=== PATIENT | female | born 1940 | race Caucasian/White ===

== ENCOUNTER → 2017-08-27 | Outpatient (CLI) | payer MEDICARE, OTHER ==
--- NOTE | 2017-08-29 12:38 | MRI ---
EXAM DESCRIPTION: Brain w/wo Contrast CLINICAL HISTORY: 76 years, Female, Sixth [abducent] nerve palsy, unspecified eye COMPARISON: None available. TECHNIQUE: Multiplanar multi sequence images of the brain were obtained with and without gadolinium contrast. FINDINGS: No diffusion restriction. Midline structures, including the corpus callosum, pituitary and brainstem, are unremarkable. The ventricles are of normal size and configuration without intraventricular lesion. The internal auditory canals and cerebral pontine angles are unremarkable. No extra-axial fluid collections. Physiologic vascular flow voids are noted. There is no posterior fossa lesion. There are irregular areas of increased T2/FLAIR signal involving periventricular white matter in both cerebral hemispheres, nonspecific but likely related to chronic ischemic microvascular disease. The basal ganglia are unremarkable. No lesion is seen in the brian or elsewhere along the course of either 6th cranial nerve. Specifically, no mass or inflammation is noted in the prepontine cistern or in either cavernous sinus. No intraorbital mass or inflammation. The lateral rectus and other extraocular muscles in both orbits are unremarkable. Postcontrast images show no enhancing lesion along the course of either 6th cranial nerve or in either orbit. Visualized paranasal sinuses are unremarkable. No calvarial lesion. IMPRESSION: No apparent intracranial abnormality to explain provided history of 6th cranial nerve palsy. Chronic ischemic microvascular changes, otherwise unremarkable exam. Electronically signed by: Ed Guerrero MD 08/29/2017 12:37 PM CDT Workstation: [id number]
--- NOTE | 2017-08-29 12:43 | MRI ---
EXAM DESCRIPTION: MRA Head and/or Neck CLINICAL HISTORY: 76 years, Female, Sixth [abducent] nerve palsy, unspecified eye COMPARISON: None TECHNIQUE: MRA of the brain was performed without gadolinium contrast including 3D [id number] and 3D MIP reconstructed images. FINDINGS: There is persistent origin of the left posterior cerebral artery with slight enlargement of the left posterior communicating artery, a common anatomic variant of doubtful clinical significance. The posterior circulation is otherwise unremarkable. The right posterior communicating artery is unremarkable. Petrous, precavernous and cavernous segments of the internal carotid arteries are unremarkable. The anterior and middle cerebral arteries are perfused and otherwise unremarkable. No intracanicular artery aneurysm. IMPRESSION: No intracranial vascular abnormality to explain patient symptoms. Electronically signed by: Ed Guerrero MD 08/29/2017 12:42 PM CDT Workstation: [id number]
== END | disposition home or self-care (01) ==
LOC: MRI 15:06
PROVIDERS: ATTEND Ophthalmology
DX: H49.20 Sixth [abducent] nerve palsy, unspecified eye (principal)

== ENCOUNTER → 2017-12-18 | Outpatient (CLI) | payer MEDICARE, OTHER | LOC: GMAJ 12:08 | PROVIDERS: ATTEND Family Medicine | DX: I10 Essential (primary) hypertension (principal) ==

== ENCOUNTER → 2018-07-09 | Outpatient (CLI) | payer MEDICARE, OTHER ==
--- NOTE | 2018-07-09 11:15 | CT ---
EXAM DESCRIPTION: Abdomen/Pelvis w/Contrast CLINICAL HISTORY: 77 years Female, RLQ ABD PAIN R10.84 COMPARISON: None available. TECHNIQUE: Contiguous 3 mm axial images were obtained from the lung bases to the level of the proximal femora after the administration of intravenous and oral contrast. Sagittal and coronal reconstructions were reviewed. FINDINGS: THORAX: The imaged lower thorax demonstrates no gross abnormality. LIVER: The liver demonstrates normal size and density with no intrahepatic biliary ductal dilatation or focal masses. GALLBLADDER: Surgically absent. PANCREAS: Appears normal with no cystic or solid lesions. SPLEEN: Normal ADRENAL GLANDS: Normal with no nodules or masses. KIDNEYS: Multiple areas of cortical scarring are noted in both kidneys most likely secondary to prior infections or infarctions. No hydronephrosis or nephrolithiasis or perinephric fluid collections bilaterally. No focal masses are identified. The visualized ureters appear grossly unremarkable. STOMACH: The stomach is not well-distended limiting detailed evaluation. SMALL BOWEL: The small bowel loops demonstrate variable degrees of distention with no abnormal dilatation or other signs to suggest bowel obstruction. LARGE BOWEL: The sigmoid colon and rectum is not well-distended. Moderate to large amount of fecal material is noted in the remainder of the colon, representing constipation. There appendix is not definitely visualized. However, no secondary signs to suggest acute appendicitis. No evidence of free intraperitoneal air or fluid. RETROPERITONEUM: The abdominal aorta is nonaneurysmal with mild atherosclerosis. The inferior vena cava is normal in size and caliber. No abnormally enlarged retroperitoneal lymph nodes are identified. URINARY BLADDER:The urinary bladder is well-distended with no gross abnormality. The uterus and ovaries are surgically absent. ADDITIONAL FINDINGS: There is a persistent fat-containing umbilical hernia with the defect measuring approximately 1.5 cm. BONES: Moderate degenerative changes are identified in the visualized bones. Grade 1 anterolisthesis of L4 over L5 is noted. IMPRESSION: 1. Constipation. 2. Persistent fat-containing umbilical hernia with the defect measuring approximately 1.5 cm. This exam was performed according to our departmental dose-optimization program, which includes automated exposure control, adjustment of the mA and/or kV according to patient size and/or use of iterative reconstruction technique. Electronically signed by: Lanny Olivares MD 07/09/2018 11:14 AM CDT
== END ==
LOC: CT 09:00
PROVIDERS: ATTEND Family Medicine
DX: K59.00 Constipation, unspecified (principal); K42.9 Umbilical hernia without obstruction or gangrene; R10.31 Right lower quadrant pain

== ENCOUNTER → 2018-08-13 | Outpatient (CLI) | payer MEDICARE, OTHER ==
--- NOTE | 2018-08-14 08:12 | MRI ---
EXAM DESCRIPTION: Lumbar Spine w/o Contrast : Magnetic Resonance Imaging. CLINICAL HISTORY: RADICULOPATHY COMPARISON: None. TECHNIQUE: Multiplanar, multiple standard sequences, non contrast MRI, lumbar spine. FINDINGS: L5-S1: Minimal disc desiccation. Disc space preserved. Minimal midline posterior bulging. Bilateral facet arthrosis left more than right. Mild left foraminal narrowing and moderate right foraminal narrowing. Moderate canal narrowing. Trace anterolisthesis. L4-5: Minimal disc desiccation with disc space preserved. Grade 1 anterolisthesis. Bilateral facet arthrosis and flavum ligament hypertrophy. Borderline mild canal stenosis. Bilateral moderate foraminal narrowing. L3-4: Disc normal signal and space preserved. Arthrosis of the left facet and flavum ligament hypertrophy. Mild canal narrowing. Modic type II endplate reactive changes on the left with disc spur complex encroaching on the foramen. Marked left foraminal narrowing and mild right foraminal narrowing. L2-3: Disc desiccation. Posterior midline bulge. Slightly more to the left of midline. Trace retrolisthesis. Mild canal narrowing. Anterior Modic type I endplate reactive changes left of midline. Arthrosis left facet. Moderate left foraminal narrowing. Mild narrowing on the right. L1-2: Disc desiccation anterior bulging and spurs. Type I Modic endplate changes to the right of midline. Disc spur complex encroaching on the right foramen which is borderline stenotic. Moderate canal and left foraminal narrowing. T12-L1 disc space preserved, normal signal in the disc. Canal and foramina are patent. Conus terminates at this level. L3-L5 dextroscoliosis. T12-L2 levoscoliosis. Paravertebral soft tissues : Mild muscle atrophy. Otherwise normal marrow signal in the remaining vertebral bodies and the posterior elements. Vertebral bodies are not compressed at any level. IMPRESSION: 1. Trace anterolisthesis L5-S1 with moderate canal and right foraminal narrowing, minimal posterior disc bulge. 2. Grade 1 anterolisthesis L4-5 with multifactorial borderline mild canal stenosis. Bilateral moderate foraminal narrowing. 3. Moderate spondylosis L3-4, left of midline with disc spur complex encroaching on the foramen which is markedly narrowed. 4. Posterior midline L2-3 disc bulge to the left of midline with mild canal narrowing. Moderate spondylosis to the left. Moderate left foraminal narrowing. 5. Moderate spondylosis to the right of midline. Disc spur complex encroaching on the right foramen which is borderline stenotic. 6. Dextroscoliosis and levoscoliosis of the lumbar spine. No compression type vertebral body fractures. Electronically signed by: Claude Hooks MD 08/14/2018 8:11 AM CDT
== END ==
LOC: MRI 11:00
PROVIDERS: ATTEND Physical Medicine & Rehabilitation
DX: M51.16 Intervertebral disc disorders with radiculopathy, lumbar region (principal); M43.16 Spondylolisthesis, lumbar region; M41.86 Other forms of scoliosis, lumbar region; M47.896 Other spondylosis, lumbar region

== ENCOUNTER 2018-12-11 16:06 | Observation (INO) | payer MEDICARE, OTHER ==
[2018-12-11] MEDS ORDERED: HYDROcodone 5MG/APAP 325MG 1 EA TAB PO ONE (16:44)
--- NOTE | 2018-12-11 16:49 | ED.PDOC ---
History of Present Illness - General Chief Complaint: General Stated Complaint: s/p fall Time Seen by Provider: 12/11/18 16:30 Source: patient Exam Limitations: no limitations - History of Present Illness Initial Comments: Patient presents after falling in her home. She was carrying grocery bags and tripped. She landed on her left side and struck the left forehead, shoulder, lo wer back and ribs. She is complaining of pain in the left ribs that is aching and constant, better with rest, worse with movement, no previous injuries to that area. The pain in the shoulder is mild, aching, located over the deltoid, no exacerbating nor alleviating factors, no previous injuries to the area. The back pain is aching, lumbar, non-radiating, no exacerbating nor alleviating factors, no previous injuries. Patient denies pain over the left eye but there is an obvious contusion at the supraorbital margin. No other complaints. Timing/Duration: 1-3 hours Severity: mild Improving Factors: rest Worsening Factors: movement Associated Symptoms: other - as in HPI Allergies/Adverse Reactions: Allergies NO KNOWN ALLERGY Allergy (Verified 12/11/18 16:23) Home Medications: Ambulatory Orders Aspirin [Aspirin EC] 81 mg PO DAILY 06/26/14 Atorvastatin Calcium [Lipitor] 40 mg PO BEDTIME 06/26/14 Calcium Carbonate-Vitamin D [Calcium 600+D 600-200 mg-Unit] 1 tab PO BID 06/26/14 Citalopram Hydrobromide [Celexa] 20 mg PO DAILY 06/26/14 Clopidogrel Bisulfate [Plavix] 75 mg PO DAILY 06/26/14 Multiple Vitamins W/ Minerals [Centrum Silver] 1 tab PO DAILY 06/26/14 Polyethylene Glycol 3350 [Miralax] 17 gm PO DAILY 06/26/14 Diltiazem HCl Coated Beads [Cartia Xt] 180 mg PO BEDTIME 12/11/18 Latanoprost 0.005 % OP BEDTIME 12/11/18 Lubiprostone [Amitiza] 48 mcg PO DAILY 12/11/18 Metoprolol Succinate [Toprol Xl] 12.5 mg PO DAILY 12/11/18 Omeprazole Magnesium [Prilosec Otc] 40 mg PO DAILY 12/11/18 Review of Systems - Review of Systems Constitutional: States: no symptoms reported EENTM: States: no symptoms reported Respiratory: States: no symptoms reported Cardiology: States: no symptoms reported Gastrointestinal/Abdominal: States: no symptoms reported Genitourinary: States: no symptoms reported Musculoskeletal: States: see HPI Skin: States: no symptoms reported Neurological: States: no symptoms reported Endocrine: States: no symptoms reported Hematologic/Lymphatic: States: no symptoms reported Past Medical History (General) - Patient Medical History Hx Seizures: No Hx Stroke: No Hx Dementia: No Hx Asthma: No Hx Cardiac Disorders: Yes Hx Congestive Heart Failure: No Hx Pacemaker: No Hx Hypertension: Yes Hx Thyroid Disease: No Hx Diabetes: No Hx Gastroesophageal Reflux: No Hx Renal Disease: No Hx Cancer: Yes - skin cancer on nose Hx of HIV: No Hx MRSA: No Surgical History: cholecystectomy, coronary bypass surgery, Hysterectomy - Vaccination History Hx Influenza Vaccination: Yes Hx Pneumococcal Vaccination: Yes - Social History Hx Tobacco Use: No Family Medical History - Family History Mother Family History: No Known Physical Exam - Physical Exam General Appearance: Alert Eye Exam: bilateral normal Ears, Nose, Throat: normal ENT inspection Neck: non-tender, full range of motion, supple Respiratory: lungs clear, normal breath sounds Cardiovascular/Chest: regular rate, rhythm, other - mildly TTP over left ribs 5- 9, anteriorly Gastrointestinal/Abdominal: normal bowel sounds, non tender, soft Back Exam: normal inspection, no CVA tenderness, no vertebral tenderness Extremity: normal range of motion, non-tender, normal inspection Neurologic: vice president tax II-XII nml as tested, no motor/sensory deficits, alert, normal mood/affect, oriented x 3 Skin Exam: other - contusion above the left eye at the supraorbital margin Lymphatic: no adenopathy Progress - Progress Progress: 12/11/18 18:48 Radiographs of the left shoulder and lumbar vertebrae showed no fracture. CT head showed no hemorrhage and no acute disease. Radiographs of the left ribs showed fractures of 5-8 as well as pleural thickening and atelectasis of the left lung base. Patient was admitted for observation due to the lung findings. Plan was discussed with the patient who voiced understanding and agreement with admission. Departure - Departure Clinical Impression: Ribs, multiple fractures Disposition: Admit Patient Condition: Good Departure Forms: ED Discharge - Pt. Copy, Patient Portal Self Enrollment Diet: resume usual diet Activity: as per physical therapy Referrals: Trip Maher MD [Primary Care Provider] - 1-2 Weeks Home Medications: Ambulatory Orders Aspirin [Aspirin EC] 81 mg PO DAILY 06/26/14 Atorvastatin Calcium [Lipitor] 40 mg PO BEDTIME 06/26/14 Calcium Carbonate-Vitamin D [Calcium 600+D 600-200 mg-Unit] 1 tab PO BID 06/26/14 Citalopram Hydrobromide [Celexa] 20 mg PO DAILY 06/26/14 Clopidogrel Bisulfate [Plavix] 75 mg PO DAILY 06/26/14 Multiple Vitamins W/ Minerals [Centrum Silver] 1 tab PO DAILY 06/26/14 Polyethylene Glycol 3350 [Miralax] 17 gm PO DAILY 06/26/14 Diltiazem HCl Coated Beads [Cartia Xt] 180 mg PO BEDTIME 12/11/18 Latanoprost 0.005 % OP BEDTIME 12/11/18 Lubiprostone [Amitiza] 48 mcg PO DAILY 12/11/18 Metoprolol Succinate [Toprol Xl] 12.5 mg PO DAILY 12/11/18 Omeprazole Magnesium [Prilosec Otc] 40 mg PO DAILY 12/11/18
--- NOTE | 2018-12-11 18:00 | CT ---
PROCEDURE: Head CLINICAL HISTORY: 78 years Female fall onto head, taking Plavix COMPARISON: 05/14/2010. TECHNIQUE: Contiguous axial CT images obtained through the brain without IV contrast. This exam was performed according to our department optimization program which includes automated exposure control, adjustment of the mA and/or kv according to patient size and/or use of iterative reconstruction technique. FINDINGS: The ventricles and sulci are within normal limits for the patient's age. No midline shift or mass effect. No masses identified. No acute intracranial hemorrhage. There is mild periventricular white matter disease. Area of previous infarct in the right kitchen radiata and the adjacent posterior temporoparietal region. No fluid or significant mucosal thickening in the visualized paranasal sinuses. No depressed calvarial fractures. IMPRESSION: Previous right temporoparietal infarct No acute intracranial abnormality is identified. Electronically signed by: Felipa Renteria MD 12/11/2018 5:58 PM LAW TUTOR
--- NOTE | 2018-12-11 18:12 | RAD ---
EXAM DESCRIPTION: Shoulder,Left 2 or More Views CLINICAL HISTORY: 78 years Female pain after fall COMPARISON: None. TECHNIQUE: LEFT SHOULDER two view FINDINGS: No acute fractures or dislocations identified. No osseous destructive lesions. Acromioclavicular joint appears maintained. IMPRESSION: No acute fracture or dislocation identified. Electronically signed by: Felipa Renteria MD 12/11/2018 6:11 PM WEATHER CLERK
--- NOTE | 2018-12-11 18:14 | RAD ---
EXAM DESCRIPTION: Lumbar Spine 3 Views CLINICAL HISTORY: 78 years ,Female pain after fall COMPARISON: None. TECHNIQUE: Three views FINDINGS: Study is significantly limited by bony demineralization and body habitus. There is grade 1 anterolisthesis of L4 on L5. There is mild curvature in the lumbar spine. Postsurgical changes are noted. IMPRESSION: Bony demineralization and body habitus limits evaluation No definite acute fracture is noted. If there is continued concern recommend CT. Electronically signed by: Felipa Renteria MD 12/11/2018 6:13 PM [facility]
--- NOTE | 2018-12-11 18:16 | RAD ---
EXAM DESCRIPTION: Ribs,Left 3 Views CLINICAL HISTORY: 78 years Female pain after fall COMPARISON: 03/24/2015 FINDINGS: Cardiac size appears similar to the previous study with elevation the right hemidiaphragm. Areas of atelectasis or scarring in both lung bases. No definite pneumothorax. Fractures of the anterior and anterolateral fifth through eighth ribs. Some pleural thickening is noted. No definite pneumothorax. IMPRESSION: Fractures of the left fifth through eighth ribs with some pleural thickening and atelectasis in the left base Electronically signed by: Felipa Renteria MD 12/11/2018 6:15 PM [facility]
[2018-12-11] MEDS ORDERED: ZOLPIDEM TARTRATE 5 MG TAB PO PRN (20:24)
[2018-12-11] MEDS ORDERED: LEVALBUTEROL NEBS 1.25 MG/3 ML VIAL NEB PRN (20:25)
[2018-12-11] MEDS ORDERED: ONDANSETRON INJ 4 MG/2 ML VIAL IV PRN (20:25)
[2018-12-11] MEDS ORDERED: SODIUM CHLORIDE 0.9% (FLUSH) 10 ML SYG IV PRN (20:25)
[2018-12-11] MEDS ORDERED: IV SET AND CAP CHANGE INJ INJ SCH (20:30)
[2018-12-11] MEDS ORDERED: LATANOPROST 0.005% OP SCH (21:00)
[2018-12-11] MEDS ORDERED: diltiaZEM HCL CD 180 MG CAP PO SCH (21:00)
[2018-12-11] MEDS ORDERED: NON-FORMULARY MEDICATION 1 EA MIS (Atorvastatin Calcium [Lipitor] 40 MG) PO SCH (21:00)
[2018-12-11] MEDS ORDERED: ATORVASTATIN 20 MG TAB PO ONE (21:32)
[2018-12-11] MEDS: SODIUM CHLORIDE 0.9% (FLUSH) 10 ML SYG IV SCH (21:40)
[2018-12-11] MEDS: HYDROcodone 5MG/APAP 325MG 1 EA TAB PO PRN (21:42)
[2018-12-12] MEDS: HYDROcodone 5MG/APAP 325MG 1 EA TAB PO PRN ×3 (05:12→13:22)
[2018-12-12] MEDS ORDERED: PANTOPRAZOLE SODIUM TAB 40 MG PO SCH (06:30)
--- NOTE | 2018-12-12 07:11 | RAD ---
EXAM DESCRIPTION: Chest,2 Views CLINICAL HISTORY:78 years Female, trauma with fx ribs (on Plavix) Comparison: December 11, 2018 FINDINGS: Bibasilar subsegmental atelectasis or scarring. No focal consolidation. No pleural effusion. No pneumothorax. Previously noted fractures are not well visualized this study. Sternotomy wires and mediastinal clips noted. Soft tissues are unremarkable. IMPRESSION: Bibasilar subsegmental atelectasis or scarring. No focal consolidation. Rib fractures are not well-visualized the study. Electronically signed by: Silverio Rudolph MD 12/12/2018 7:10 AM [facility]
[2018-12-12] MEDS ORDERED: LEVALBUTEROL NEBS 1.25 MG/3 ML VIAL NEB SCH (08:00)
[2018-12-12] MEDS ORDERED: CLOPIDOGREL 75 MG TAB PO SCH (09:00)
[2018-12-12] MEDS ORDERED: LUBIPROSTONE PO SCH (09:00)
[2018-12-12] MEDS ORDERED: METOPROLOL SUCCINATE XL 25 MG TAB PO SCH (09:00)
[2018-12-12] MEDS ORDERED: POLYETHYLENE GLYCOL 3350 17 GM PCKT PO SCH (09:00)
[2018-12-12] MEDS ORDERED: ASPIRIN (ENTERIC COATED) 81 MG TAB PO SCH (09:00)
[2018-12-12] MEDS ORDERED: CITALOPRAM HBR 20 MG TAB PO SCH (09:00)
[2018-12-12 10:39] VITALS: BP 110/65; TEMP 98; O2SAT 95
--- NOTE | 2018-12-12 14:03 | SSS ---
SUPERVISING PHYSICIAN: Brian Aranda M.D. DISCHARGE DIAGNOSES: 1. Traumatic same level fall resulting in 3 left rib fractures with increased risk of bleeding due to the patient taking Plavix. 2. Fracture of ribs #5 through #8 left anterolateral. 3. History of coronary artery disease. 4. Hypertension. 5. Chronic obstructive pulmonary disease without signs or symptoms of exacerbation. 6. Insomnia. 7. Osteoporosis. 8. History of supraventricular tachycardia. 9. History of atrial fibrillation. HISTORY OF PRESENT ILLNESS: This is a 78 year-old female patient who was bringing in her groceries on the evening prior to admission and she slipped in her home and fell on her left side. She said there was no loss of consciousness. She stayed at home over the next 24 hours and after her daughter found out she was brought to the Emergency Room because the patient is on Plavix and she was also in quite a bit of pain. The pain on admission to the E. R. was in her left shoulder. She also had some pain in her mid back. She had a contusion on the side of her face at the supraorbital margin. She had x-rays done. A left shoulder x-ray showed no acute fracture or dislocation. Her left rib x-ray showed fractures of the anterior and anterolateral fifth through eighth ribs with some pleural thickening and with some mild atelectasis in the left base. Head CT was also done and showed no acute intracranial abnormality identified with a previous right temporoparietal infarct. There was also a lumbar spine x-ray that showed no definite acute fracture noted. Lab showed a WBC of 7.8 with hemoglobin 12.7, hematocrit 37.5. PT was 10.4, PTT 25.9. Electrolytes were basically within normal limits. Glucose was slightly high at 109 with serum osmolality of 272.7. Liver enzymes were within normal limits. I was called for hospital admission. The E. R. doctor was concerned that she may have a hemothorax due to the atelectasis on the rib x-ray and also that she is on Plavix chronically. The patient was placed in observation. HOSPITAL COURSE: Her home medications were restarted. Her breathing was monitored as well as she was placed on O2 sat monitor. Vital signs on admission showed a temperature of 97.5 with a heart rate of 69, blood dglmmmax512/88, respiratory rate 20, O2 sat was 96% on room air. She was also given extensive teaching on good pulmonary hygiene, including incentive spirometry that she should do after discharge to prevent pneumonia. She was also given Hydrocodone for pain. Lab and x-rays were ordered for the morning. She was monitored closely overnight. PAST MEDICAL HISTORY: 1. Atrial fibrillation. 2. Coronary artery disease. 3. Chronic obstructive pulmonary disease 4. Depression and anxiety. 5. Hypertension. 6. Insomnia. 7. Lumbar disc disease. 8. Osteoporosis. 9. Transient ischemic attack. 10. Cerebrovascular accident. PAST SURGICAL HISTORY: 1. Coronary artery bypass graft times 4 in 2007. 2. Hysterectomy. 3. Bladder suspension. OUTPATIENT MEDICATIONS: 1. Citalopram. 2. Lipitor. 3. Plavix. 4. Nitrostat. 5. Cartia XT. 6. Aspirin. 7. Omeprazole. 8. Amitiza. 9. Toprol. 10. Calcium. ALLERGIES: NO KNOWN DRUG ALLERGIES. FAMILY HISTORY: Positive for heart disease. SOCIAL HISTORY: She lives in [place]. She is . She has 3 children. She quit smoking many years ago. She denies any ETOH or illicit drug use. REVIEW OF SYSTEMS: GENERAL: Negative for fatigue, fever or weight changes. HEENT: Negative for sinus symptoms, ear pain, vision changes or sore throat. RESPIRATORY: Positive for a mild cough. Negative for shortness of breath or wheezing. CARDIAC: Negative for chest pain, palpitations or tachycardia. GASTROINTESTINAL: Negative for nausea, vomiting, diarrhea. GENITOURINARY: Negative for hematuria, dysuria or polyuria. MUSCULOSKELETAL: As per history of present illness. SKIN: Negative for lesions or rashes. NEUROLOGIC: Negative for dizziness, headaches or seizures. PHYSICAL EXAMINATION: VITAL SIGNS: Temperature 98, heart rate 65, blood pressure 110/55, respiratory rate 16, O2 sat 95% on room air. GENERAL: This is a 78 year-old female patient lying in her hospital bed. She is in no acute distress. HEENT: Normocephalic. She does have a mild bruise on her left orbital area. Pupils are equal and reactive. Oropharynx is clear. NECK: Supple without mass. RESPIRATORY: Essentially clear to auscultation bilaterally. CARDIOVASCULAR: Regular rate and rhythm. GASTROINTESTINAL: Abdomen is soft, nondistended, non-tender. Bowel sounds are positive. EXTREMITIES: No cyanosis, clubbing or edema. NEUROLOGIC: She is awake, alert and oriented times three. Cranial nerves II- XII are grossly intact. She does have some mild ecchymosis along the anterior portion of her left rib. It is somewhat tender to palpation. LABORATORY: Repeat laboratory showed electrolytes that are within normal limits. Serum osmolality 274.5. CBC is basically within normal limits. X-ray this morning shows bibasilar subsegmental atelectasis or scarring. No focal consolidation. All other labs and films have been reviewed via the EMR. DISCHARGE PLAN: The patient has been walking in the hallways and she is encouraged to continue to do so. She will be discharged in stable condition. She is to increase her activity as tolerated. She is to continue her incentive spirometry to decrease the likelihood of pneumonia. She is to resume her home medications. I have also given her a prescription for Tylenol #3 for her rib pain. She is to followup with Dr. Maher within 1 to 2 weeks. She is to return to the hospital for any problems or complications. DISCHARGE MEDICATIONS: 1. Multivitamins. 2. Vitamin D and calcium. 3. MiraLAX. 4. Citalopram. 5. Aspirin. 6. Plavix. 7. Lipitor. 8. Diltiazem. 9. Amitiza. 10. Latanoprost eye drops. 11. Metoprolol succinate. 12. Omeprazole. 13. Acetaminophen with codeine. #[id number] [facility]
[2018-12-12] MEDS: SODIUM CHLORIDE 0.9% (FLUSH) 10 ML SYG IV SCH (14:15)
[2018-12-12] MEDS ORDERED: LATANOPROST 0.005% OPTH SOL 2.5 ML BTTL RIGHT_EYE SCH (21:00)
[2018-12-12] MEDS ORDERED: ATORVASTATIN 20 MG TAB PO SCH (21:00)
== END 2018-12-12 14:00 | disposition home or self-care (01) ==
LOC: ER 16:06 → MS 20:02 → UNDOADMIN 20:02 → MS 20:02
PROVIDERS: ADMIT Nurse Practitioner Acute Care; ATTEND Nurse Practitioner Acute Care
DX: S22.42XA Multiple fractures of ribs, left side, initial encounter for closed fracture (principal); S00.83XA Contusion of other part of head, initial encounter; M25.512 Pain in left shoulder; M54.5 Low back pain; I25.10 Atherosclerotic heart disease of native coronary artery without angina pectoris; I10 Essential (primary) hypertension; J44.9 Chronic obstructive pulmonary disease, unspecified; G47.00 Insomnia, unspecified; M81.0 Age-related osteoporosis without current pathological fracture; W01.0XXA Fall on same level from slipping, tripping and stumbling without subsequent striking against object, initial encounter; Y93.89 Activity, other specified; Y92.009 Unspecified place in unspecified non-institutional (private) residence as the place of occurrence of the external cause; Y99.8 Other external cause status; Z79.02 Long term (current) use of antithrombotics/antiplatelets; Z79.82 Long term (current) use of aspirin; Z79.899 Other long term (current) drug therapy; Z95.1 Presence of aortocoronary bypass graft; Z86.79 Personal history of other diseases of the circulatory system; Z86.73 Personal history of transient ischemic attack (TIA), and cerebral infarction without residual deficits; Z85.828 Personal history of other malignant neoplasm of skin; Z87.891 Personal history of nicotine dependence
CPT/HCPCS: J7614; 80053 ×2; 36415 ×2; 85025 ×2; 85730; 85610; 71046; 72100; 71101; 73030; 70450; 94760; 94640; G0378

== ENCOUNTER → 2019-01-31 | Outpatient (CLI) | payer MEDICARE, OTHER | LOC: GMAJ 10:44 | PROVIDERS: ATTEND Family Medicine | DX: I10 Essential (primary) hypertension (principal) ==

== ENCOUNTER 2019-03-16 16:45 | Emergency (ER) | payer MEDICARE, OTHER ==
--- NOTE | 2019-03-16 17:28 | RAD ---
EXAM DESCRIPTION: XR Elbow,Right 2 Views CLINICAL HISTORY: 78 years Female Fall with pain TECHNIQUE: Two views of the right elbow are provided. COMPARISON: No prior exams provided for comparison. FINDINGS: There is no acute right elbow fracture, dislocation, or joint effusion. Punctate mineralized focus adjacent to the coronoid process of the right ulna is likely degenerative. There is mild enthesopathy at the lateral epicondyle, also chronic in appearance. No aggressive osseous lesion. IMPRESSION: No acute right elbow injury. Electronically signed by: Loreto Wheeler MD 03/16/2019 5:26 PM CDT
--- NOTE | 2019-03-16 17:29 | RAD ---
EXAM DESCRIPTION: XR Humerus, Right CLINICAL HISTORY: 78 years Female fall with pain TECHNIQUE: Two views of the right humerus are provided COMPARISON: No prior exams provided for comparison. FINDINGS: There is no right humeral fracture or aggressive osseous lesion. No evidence of right shoulder or right elbow dislocation. Mild chronic degenerative changes incidentally noted at the right acromioclavicular joint. IMPRESSION: Normal radiographs of the right humerus. Electronically signed by: Loreto Wheeler MD 03/16/2019 5:27 PM CDT
--- NOTE | 2019-03-16 17:31 | RAD ---
EXAM DESCRIPTION: XR Wrist, Right 3 Views CLINICAL HISTORY: 78 years Female Fall with pain TECHNIQUE: Three views of the right wrist are provided. COMPARISON: No prior exams provided for comparison. FINDINGS: There is an acute, impacted, and dorsally angulated distal radial metaphyseal fracture. No visualized fracture line extension to the articular surface of the distal radius. There is also an acute fracture through the base of the ulnar styloid. Surrounding soft tissue swelling. No radiodense foreign body. Diffuse osteoporosis without focal aggressive osseous lesion. No abnormal joint space widening or subluxation. IMPRESSION: Acute, impacted, and dorsally angulated right distal radial metaphyseal fracture. No definite intra-articular extension or dislocation. Acute fracture through the base of the right ulnar styloid. Electronically signed by: Loreto Wheeler MD 03/16/2019 5:29 PM CDT
[2019-03-16] MEDS ORDERED: HYDROmorphone HCL INJ 2 MG/ML VIAL IM ONE (17:41)
[2019-03-16] MEDS ORDERED: LIDOCAINE 1% 10 ML VIAL INJ ONE (17:47)
--- NOTE | 2019-03-16 18:56 | RAD ---
EXAM: XR Right Wrist, 2 Views CLINICAL HISTORY: 78 years old and is Female; post reduction attempt TECHNIQUE: Frontal and lateral views of the right wrist. Images obtained at 6:28 PM. COMPARISON: Images about one hour earlier. FINDINGS: Limitations: None. Bones/joints: There is slight decreased dorsal tilt of slightly impacted fracture of the distal radius. Stable ulnar styloid fracture. No dislocation. Soft tissues: Swelling noted. No radiopaque foreign body. IMPRESSION: There is slight decreased dorsal tilt of slightly impacted fracture of the distal radius. Stable ulnar styloid fracture. Electronically signed by: Arcelia Helm MD 03/16/2019 6:53 PM CDT
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
[2019-03-16 20:18] VITALS: BP 132/77; TEMP 98.7; O2SAT 94
== END 2019-03-16 20:37 | disposition home or self-care (01) ==
LOC: ER 16:45
DX: S52.501A Unspecified fracture of the lower end of right radius, initial encounter for closed fracture (principal); S52.611A Displaced fracture of right ulna styloid process, initial encounter for closed fracture; S50.311A Abrasion of right elbow, initial encounter; I51.9 Heart disease, unspecified; I10 Essential (primary) hypertension; Z86.73 Personal history of transient ischemic attack (TIA), and cerebral infarction without residual deficits; Z85.828 Personal history of other malignant neoplasm of skin; Z79.899 Other long term (current) drug therapy; Z79.82 Long term (current) use of aspirin; W18.39XA Other fall on same level, initial encounter; Y92.9 Unspecified place or not applicable
CPT/HCPCS: 73060; 73070; 73100; 73110; J1170

== ENCOUNTER → 2019-04-19 | Outpatient (CLI) | payer MEDICARE, OTHER ==
--- NOTE | 2019-04-19 14:06 | RAD ---
EXAM DESCRIPTION: Wrist,Right 3 Views CLINICAL HISTORY: 78 years, Female, S52.501D COMPARISON: March 28, 2019 TECHNIQUE: Three views right wrist FINDINGS: Three views right wrist demonstrate interval modest impaction of the radial fracture with modest dorsal angulation remaining with some developing callus formation noted on the lateral view. Dorsal angulation is estimated at 23 degrees on today's study compared to 32 degrees on previous examination. Minimally displaced ulnar styloid fracture is unchanged. Very slight two or 3 mm foreshortening is suggested on the AP view. No carpal displacement or fracture or dislocation seen. IMPRESSION: 1. Impacted fracture of the distal radius with persistent dorsal angulation estimated at approximately 23 degrees with very slight foreshortening of 2 to 3 mm since prior study March 28, 2019 Electronically signed by: Feng Dominguez MD 04/19/2019 2:04 PM CDT
== END ==
LOC: RAD 08:04
PROVIDERS: ATTEND Orthopaedic Surgery
DX: S52.501D Unspecified fracture of the lower end of right radius, subsequent encounter for closed fracture with routine healing (principal)

== ENCOUNTER → 2019-04-26 | Outpatient (CLI) | payer MEDICARE, OTHER ==
--- NOTE | 2019-04-27 09:08 | MRI ---
EXAM DESCRIPTION: Lumbar Spine w/o Contrast : Magnetic Resonance Imaging. CLINICAL HISTORY: SPINAL STENOSIS LUMBAR REGION COMPARISON: MRI scan lumbar spine without contrast 04/26/2019. Lumbosacral spine series 04/21/2019. TECHNIQUE: Multiplanar, multiple standard sequences, non contrast MRI, lumbar spine. FINDINGS: L5-S1: The entire disc space is imaged on axial T2 series 501, image 3. Disc desiccation with disc space preserved. Grade 1 anterolisthesis 2 mm. AP canal diameter 8 mm no disc bulging. Bilateral shortened pedicles, hypertrophic facet arthrosis, and thickened flavum ligaments. Moderate narrowing of the right foramen and mild narrowing of the left foramen. Stable since the prior study. L4-L5: Disc desiccation with disc space preserved. Modic type I endplate reactive changes inferior L4. Grade 1 anterolisthesis 5 mm. Midline AP canal diameter 9 mm. Mild posterior broad-based disc bulge. Bilateral facet hypertrophic arthrosis and thickened ligaments. Progression of canal narrowing since the prior study. Outer to severe left foraminal narrowing and moderate right foraminal narrowing. Stable since the prior study. L3-L4: Disc desiccation and tiny disc bulge. Grade 1 retrolisthesis 2 mm. Left side hypertrophic facet arthrosis and thickening of the ligament. Borderline left foraminal stenosis. No canal narrowing. No change since the prior study. L2-L3: Since the prior study, the superior L3 endplate is slightly depressed with no signal and edema like signal. Moderate expansion of the disc. Retropulsion of the superior endplate 3 mm along with the disc which is desiccated. No marrow edema in the pedicles. Endplate injury not present on the prior study. AP canal diameter 11 mm. Hypertrophic facet arthrosis on the right with ligament thickening abutting the left thecal sac. Mild to moderate left foraminal narrowing and moderate right foraminal narrowing. L1-L2: Disc desiccation more advanced on the right side of the disc space with endplate reactive changes. Anterior disc bulging and ridging. Posterior disc bulge and grade 1 retrolisthesis 2 mm. Mild bilateral hypertrophic facet arthrosis with thickening of the ligaments. Canal is patent. Mild left foraminal narrowing with right foraminal stenosis. No change since the prior study. T12-L1: Disc desiccation with disc space maintained and no bulging. Conus terminates just below the disc space. Right facet hypertrophic arthrosis and thickening of the ligament. Canal and bilateral foramina are patent. Circumscribed hyperintense T1 and T2 object consistent with a hemangioma in the T12 vertebral body. Stable since the prior study. Dextroscoliosis L3-S1. Levoscoliosis T11-L2. Paravertebral soft tissues muscle atrophy. Otherwise normal marrow signal in the remaining vertebral bodies and the posterior elements. Other vertebral bodies are not compressed. IMPRESSION: 1. In the interval since the prior study, the superior L3 endplate has been compressed with marrow edema but not including the pedicles. Approximately 25% loss of height of the body. 3 mm retropulsion of the superior endplate. Moderate canal narrowing. Bilateral foraminal narrowing. 2. Multiple levels of disc space degeneration, spondylosis, hypertrophic facet arthrosis and thickening of the flavum ligaments. Also anterolisthesis and retrolisthesis. Relatively stable since the prior study. 3. Midline central canal stenosis at L4-L5 is multifactorial and stable. Mild to moderate central canal stenosis and anterolisthesis at L5-S1 is unchanged since the prior study. 4. Asymmetric spondylosis at L1-L2 resulting in right foraminal stenosis which is stable since the prior study. Possible compromise right L1 nerve as it exits the canal. Electronically signed by: Claude Hooks MD 04/27/2019 9:06 AM CDT
== END ==
LOC: MRI 08:00
PROVIDERS: ATTEND Family Medicine
DX: M48.062 Spinal stenosis, lumbar region with neurogenic claudication (principal); M48.07 Spinal stenosis, lumbosacral region; M47.896 Other spondylosis, lumbar region; M51.36 Other intervertebral disc degeneration, lumbar region; M43.16 Spondylolisthesis, lumbar region

== ENCOUNTER → 2019-05-16 | Outpatient (CLI) | payer MEDICARE, OTHER | LOC: LAB.O 13:09 | PROVIDERS: ATTEND Internal Medicine Gastroenterology | DX: K52.9 Noninfective gastroenteritis and colitis, unspecified (principal) ==

== ENCOUNTER → 2019-05-18 | Outpatient (CLI) | payer MEDICARE, OTHER ==
--- NOTE | 2019-05-18 15:45 | CT ---
EXAM DESCRIPTION: Abdomen/Pelvis w/wo Contrast CLINICAL HISTORY: Abdominal pain COMPARISON: July 09, 2018 TECHNIQUE: Pre and postcontrast CT images of the abdomen and pelvis are obtained using standard imaging protocol. This exam was performed according to our departmental dose-optimization program, which includes automated exposure control, adjustment of the mA and/or kV according to patient size and/or use of iterative reconstruction technique . FINDINGS: The visualized lung bases show no acute findings. Heart is enlarged. A bandage epicardial leads are again seen. 1 cm cyst in the central right lobe liver is stable. Cholecystectomy changes are seen with mild intra and extrahepatic biliary ductal dilatation is similar to previous. Small air-filled diverticulum of the second portion of the duodenum in the head of the pancreas is again seen. The pancreas, spleen, and adrenal glands are unremarkable. Moderate calcific atherosclerotic disease. Mild cortical thinning in the lateral midpole the left kidney and lateral lower pole right kidney seen. No nephrolithiasis. No ureteral calcification or obstruction. Urinary bladder is partly distended. Prolapse of the urinary bladder into the vaginal canal is seen. Surgical absence of the uterus. The ovaries are not identified. The appendix is not seen. Stomach is poorly distended but unremarkable. No small bowel obstruction or inflammatory changes. Mildly increased findings of formed fecal material in the colon. No wall thickening or inflammatory changes. No significant diverticular disease. No pathologically enlarged abdominal or retroperitoneal lymphadenopathy. Postsurgical changes from bilateral inguinal hernia repair. Presumed surgical clips associated with small fat-containing umbilical hernia. Moderate scoliosis of the lumbar spine. Compression fracture deformity of the superior plate of L3 is new from previous exam with age-indeterminate. IMPRESSION: No acute findings on CT of the abdomen and pelvis. Mild colon constipation or obstipation. Mild urinary bladder prolapse. Age-indeterminate interval L3 compression fracture deformity. Electronically signed by: Liam Okeefe MD 05/18/2019 3:43 PM CDT
== END ==
LOC: CT 08:59
PROVIDERS: ATTEND Neurological Surgery
DX: K59.8 Other specified functional intestinal disorders (principal); N32.89 Other specified disorders of bladder; S32.030A Wedge compression fracture of third lumbar vertebra, initial encounter for closed fracture

== ENCOUNTER → 2019-05-20 | Outpatient (CLI) | payer MEDICARE, OTHER ==
--- NOTE | 2019-05-20 11:31 | RAD ---
EXAM DESCRIPTION: Wrist,Right 3 Views CLINICAL HISTORY: 78 years Female, CLOSED FRACTURE OF DISTAL END OF RADIUS RIGHT COMPARISON: April 19, 2019. FINDINGS: Diffuse osteopenia of the visualized bones noted. Again noted is minimally displaced distal radius fracture with a interval callus formation. Persistent fracture line is identified. Again noted is persistent dorsal angulation of the distal fracture fragment which appears stable from prior exam. The distal radioulnar joint is intact. Stable minimally displaced ulnar process fracture. The overlying soft tissues appear grossly unremarkable. IMPRESSION: 1. Impacted fracture of the distal radius with persistent dorsal angulation, however interval development of callus formation noted at the fracture site consistent with interval healing. 2. Stable minimally displaced ulnar styloid process fracture. Electronically signed by: Ignacio Godoy MD 05/20/2019 11:28 AM CDT
== END ==
LOC: RAD 07:39
PROVIDERS: ATTEND Orthopaedic Surgery
DX: S52.501D Unspecified fracture of the lower end of right radius, subsequent encounter for closed fracture with routine healing (principal); S52.201D Unspecified fracture of shaft of right ulna, subsequent encounter for closed fracture with routine healing

== ENCOUNTER 2020-02-01 22:04 | Inpatient (IN) | payer MEDICARE, OTHER ==
[2020-02-01] MEDS ORDERED: ONDANSETRON INJ 4 MG/2 ML VIAL IV ONE (22:23)
[2020-02-01] MEDS ORDERED: fentaNYL CITRATE INJ 50 MCG/ML 2 ML AMP IV ONE (22:48)
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
--- NOTE | 2020-02-01 23:15 | RAD ---
EXAM DESCRIPTION: Chest,1 View CLINICAL HISTORY: 79 years Female fall COMPARISON: Chest x-ray from 12/12/[address] abdomen and pelvis study from 05/18/2019. FINDINGS: Stable cardiomediastinal silhouette. Changes from previous sternotomy. Tortuosity and atherosclerotic calcifications in the thoracic aorta. There is a density overlying the lower chest which appears to represent a hiatal hernia. This was not visualized on the previous studies and therefore three month follow-up is recommended. No consolidating infiltrates or pleural effusions. No pneumothorax. There are old right rib fractures. IMPRESSION: There is likely a hiatal hernia but this was not visualized on the previous studies and therefore three month follow-up is recommended to exclude an enlarging solid mass lesion. No definite acute intrathoracic abnormality is identified. Electronically signed by: Ovi Renteria MD 02/01/2020 11:14 PM CDT
--- NOTE | 2020-02-01 23:16 | RAD ---
EXAM DESCRIPTION: Pelvis,2 or More Views CLINICAL HISTORY: 79 years Female fall with left hip pain COMPARISON: None. TECHNIQUE: Two views of the pelvis. FINDINGS: There are left intertrochanteric fractures which do not appear significantly displaced on the views provided. No other fractures are identified. No hip dislocation. There are postsurgical changes overlying the pelvis. IMPRESSION: Left intertrochanteric fractures. Electronically signed by: Ovi Renteria MD 02/01/2020 11:15 PM CDT
[2020-02-01] MEDS ORDERED: MORPHINE SULFATE INJ 10 MG/ML VIAL IV ONE (23:48)
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
[2020-02-02] MEDS ORDERED: SODIUM CHLORIDE 0.9% (FLUSH) 10 ML SYG IV PRN ×2 (01:02→17:52)
[2020-02-02] MEDS ORDERED: ACETAMINOPHEN IV 1000MG 1,000 MG in PREMIX BOTTLE 1 BOTTLE IVPB ONE (01:07)
[2020-02-02] MEDS ORDERED: KCL 20MEQ/D5 1/2NS 1,000 ML IVS PRN (01:08)
[2020-02-02] MEDS ORDERED: ACETAMINOPHEN IV 1000MG 100 ML ONE ×2 (01:14→10:14)
[2020-02-02] MEDS ORDERED: IV SET AND CAP CHANGE INJ INJ SCH (01:30)
[2020-02-02] MEDS ORDERED: NALOXONE HCL INJ 0.4 MG/ML VIAL IV PRN ×2 (02:18→17:52)
[2020-02-02] MEDS ORDERED: HYDROmorphone PCA 0.2 MG/ML 1 BAG BAG IVPB SCH ×2 (02:30→18:00)
[2020-02-02] MEDS: ONDANSETRON INJ 4 MG/2 ML VIAL IV PRN (06:52)
[2020-02-02] MEDS ORDERED: ePHEDrine SULF 50 MG/ML ONE (07:00)
[2020-02-02] MEDS ORDERED: MAGNESIUM SULFATE INJ 1 GM/2 ML VIAL ONE (07:00)
[2020-02-02] MEDS ORDERED: SODIUM CHLORIDE 0.9% 50 ML VIAL ONE (07:00)
[2020-02-02] MEDS ORDERED: DEXAMETHASONE INJ 10 MG/ML VIAL ONE (07:00)
[2020-02-02] MEDS ORDERED: LIDOCAINE 1% 10 ML VIAL INJ ONE (07:00)
[2020-02-02] MEDS ORDERED: PROPOFOL 200 MG/20 ML VIAL IV ONE (07:00)
[2020-02-02] MEDS ORDERED: raNITIdine HCL INJ 25 MG/ML VIAL ONE (07:00)
[2020-02-02] MEDS ORDERED: PANTOPRAZOLE SODIUM IV 40 MG VIAL IV ONE (07:19)
[2020-02-02] MEDS ORDERED: METOPROLOL SUCCINATE XL 25 MG TAB PO ONE (07:20)
[2020-02-02] MEDS ORDERED: diltiaZEM HCL CD 180 MG CAP ONE (07:26)
[2020-02-02] MEDS ORDERED: VANCOMYCIN HCL INJ 1,000 MG in SODIUM CHLORIDE 0.9% 250ML 250 ML IVPB ONE (08:50)
[2020-02-02] MEDS ORDERED: VANCOMYCIN HCL INJ 1,000 MG VIAL IVPB ONE ×4 (08:52→19:20)
[2020-02-02] MEDS ORDERED: SCOPOLAMINE PATCH 1.5MG 1 EA TD ONE ×2 (08:52→08:58)
[2020-02-02] MEDS ORDERED: SODIUM CHLORIDE 0.9% 250ML 250 ML ONE ×2 (08:52→19:18)
[2020-02-02] MEDS ORDERED: SODIUM CHL 0.9% 100ML MINI-BAG 100 ML IVPB ONE (09:18)
[2020-02-02] MEDS ORDERED: ceFAZolin SODIUM 1 GM VIAL ONE ×4 (09:19→19:20)
[2020-02-02] MEDS ORDERED: BUPIVACAINE 0.5% 30 ML VIAL INJ ONE ×2 (09:22→09:49)
[2020-02-02] MEDS ORDERED: BUPIVACAINE LIPOSOME 13.3 MG/ML VIAL INJ ONE ×2 (09:22→09:49)
[2020-02-02] MEDS ORDERED: ELECTROLYTE-A 1,000 ML IVS ONE (09:36)
[2020-02-02] MEDS ORDERED: MIDAZOLAM INJ 2 MG/2 ML VIAL ONE (09:41)
[2020-02-02] MEDS ORDERED: fentaNYL CITRATE INJ 50 MCG/ML 2 ML AMP ONE ×2 (09:42→12:12)
[2020-02-02] MEDS ORDERED: ceFAZolin SODIUM 1 GM VIAL IRRIG ONE (09:49)
[2020-02-02] MEDS ORDERED: LACTATED RINGERS 1,000 ML ONE (10:38)
[2020-02-02] MEDS ORDERED: ENOXAPARIN SODIUM 30 MG/0.3 ML SYG SUBCU SCH (11:30)
[2020-02-02] MEDS ORDERED: ONDANSETRON INJ 4 MG/2 ML VIAL ONE (12:00)
--- NOTE | 2020-02-02 12:39 | RAD ---
2 radiographs left hip Indication: post-op Comparison: February 01, 2020 Impression: ORIF of the intertrochanteric left femoral neck fracture with intramedullary femoral keny, proximal femoral neck interlocking screw, and a distal interlocking screw. Associated post surgical changes of the soft tissues noted. Electronically signed by: Rik Hernandez MD 02/02/2020 12:37 PM CDT
--- NOTE | 2020-02-02 14:13 | RAD ---
EXAM DESCRIPTION: 4 intraoperative radiographs CLINICAL HISTORY: Intramedullary nail of the hip FINDINGS/ IMPRESSION: 4 intraoperative radiographs. Fluoroscopy time 70.5 seconds Electronically signed by: Feng Hernandez MD 02/02/2020 2:11 PM CDT
[2020-02-02] MEDS ORDERED: HYDROcodone 5MG/APAP 325MG 1 EA TAB PO PRN (17:52)
[2020-02-02] MEDS ORDERED: PROMETHAZINE HCL INJ 25 MG in SODIUM CHLORIDE 0.9% 50ML 50 ML IVPB PRN (17:52)
[2020-02-02] MEDS ORDERED: PROMETHAZINE HCL INJ 12.5 MG in SODIUM CHLORIDE 0.9% 50ML 50 ML IVPB PRN (17:52)
[2020-02-02] MEDS ORDERED: ACETAMINOPHEN 500 MG TAB PO PRN (17:52)
[2020-02-02] MEDS ORDERED: ONDANSETRON INJ 4 MG/2 ML VIAL IV PRN (17:52)
[2020-02-02] MEDS ORDERED: traMADol HCL 50 MG TAB PO PRN (17:52)
[2020-02-02] MEDS ORDERED: SODIUM CHLORIDE 0.9% 100ML 100 ML IVPB ONE (18:33)
[2020-02-02] MEDS ORDERED: DEX 5% W/NACL 0.45% 1000ML 1,000 ML IVS ONE (18:34)
[2020-02-02] MEDS: diltiaZEM HCL CD 180 MG CAP PO SCH (18:42)
[2020-02-02] MEDS: ceFAZolin SODIUM 2 GM in SODIUM CHL 0.9% 50ML MIN-BAG+ 50 ML IVPB SCH (18:42)
[2020-02-02] MEDS ORDERED: DEX 5% W/NACL 0.45% 1000ML 1,000 ML IVS PRN (18:44)
[2020-02-02] MEDS ORDERED: ATORVASTATIN 20 MG TAB PO ONE (19:18)
[2020-02-02] MEDS ORDERED: LORATADINE 10 MG TAB PO ONE (19:18)
[2020-02-02] MEDS ORDERED: SODIUM CHL 0.9% 50ML MIN-BAG+ 50 ML IVPB ONE (19:19)
[2020-02-02] MEDS ORDERED: CALCIUM CARBONATE-VITAMIN D 500 MG TAB ONE (19:19)
[2020-02-02] MEDS: VANCOMYCIN HCL INJ 1,000 MG in SODIUM CHLORIDE 0.9% 250ML 250 ML IVPB SCH (19:57)
[2020-02-02] MEDS: DOCUSATE CALCIUM 240 MG CAP PO SCH (20:58)
[2020-02-02] MEDS: MELATONIN 3 MG TAB PO SCH (20:58)
[2020-02-02] MEDS: CLOPIDOGREL 75 MG TAB PO SCH (20:58)
[2020-02-02] MEDS: CALCIUM CARBONATE VITAMIN D PO SCH (21:00)
[2020-02-02] MEDS: [UNRECOGNIZED DRUG - OTHER] PO SCH (21:00)
[2020-02-02] MEDS ORDERED: NON-FORMULARY MEDICATION 1 EA MIS (Loratadine [Claritin] 10 MG) PO SCH (21:00)
[2020-02-02] MEDS ORDERED: NON-FORMULARY MEDICATION 1 EA MIS (Atorvastatin Calcium [Lipitor] 40 MG) PO SCH (21:00)
[2020-02-02] MEDS: ENOXAPARIN SODIUM 30 MG/0.3 ML SYG SUBCU SCH (22:39)
[2020-02-03] MEDS ORDERED: ceFAZolin SODIUM 1 GM VIAL ONE ×2 (00:55→09:47)
[2020-02-03] MEDS: ceFAZolin SODIUM 2 GM in SODIUM CHL 0.9% 50ML MIN-BAG+ 50 ML IVPB SCH ×2 (00:59→09:49)
[2020-02-03] MEDS: IV SET AND CAP CHANGE INJ INJ SCH (07:11)
[2020-02-03] MEDS ORDERED: SODIUM CHLORIDE 0.9% 250ML 250 ML ONE (07:22)
[2020-02-03] MEDS ORDERED: LORATADINE 10 MG TAB PO ONE ×2 (07:22→18:47)
[2020-02-03] MEDS ORDERED: VANCOMYCIN HCL INJ 1,000 MG VIAL IVPB ONE (07:23)
[2020-02-03] MEDS: VANCOMYCIN HCL INJ 1,000 MG in SODIUM CHLORIDE 0.9% 250ML 250 ML IVPB SCH (07:25)
[2020-02-03] MEDS: METOPROLOL SUCCINATE XL 25 MG TAB PO SCH (09:43)
[2020-02-03] MEDS: diltiaZEM HCL CD 180 MG CAP PO SCH (09:43)
[2020-02-03] MEDS: MAGNESIUM OXIDE 400 MG TAB PO SCH (09:43)
[2020-02-03] MEDS: ASPIRIN (ENTERIC COATED) 81 MG TAB PO SCH (09:44)
[2020-02-03] MEDS: BIFIDOBACTERIUM INFANTIS 4 MG CAP PO SCH (09:44)
[2020-02-03] MEDS: POLYETHYLENE GLYCOL 3350 17 GM PCKT PO SCH (09:44)
[2020-02-03] MEDS ORDERED: SODIUM CHL 0.9% 50ML MIN-BAG+ 50 ML IVPB ONE (09:47)
[2020-02-03] MEDS: PANTOPRAZOLE SODIUM TAB 40 MG PO SCH (09:48)
[2020-02-03] MEDS: CALCIUM CARBONATE-VITAMIN D 500 MG TAB PO SCH ×2 (09:48→20:29)
[2020-02-03] MEDS: CITALOPRAM HBR 20 MG TAB PO SCH (09:49)
[2020-02-03] MEDS: [UNRECOGNIZED DRUG - OTHER] PO SCH (11:22)
[2020-02-03] MEDS: CALCIUM CARBONATE VITAMIN D PO SCH (11:22)
[2020-02-03] MEDS: ENOXAPARIN SODIUM 30 MG/0.3 ML SYG SUBCU SCH ×2 (11:23→23:44)
[2020-02-03] MEDS ORDERED: ATORVASTATIN 20 MG TAB PO ONE (18:47)
[2020-02-03] MEDS ORDERED: HYDROcodone 10MG/APAP 325MG 1 EA TAB ONE (19:45)
[2020-02-03] MEDS: HYDROcodone 10MG/APAP 325MG 1 EA TAB PO PRN (19:52)
[2020-02-03] MEDS ORDERED: ALPRAZolam 0.25 MG TAB PO PRN (19:58)
[2020-02-03] MEDS: DOCUSATE CALCIUM 240 MG CAP PO SCH (20:29)
[2020-02-03] MEDS: MELATONIN 3 MG TAB PO SCH (20:29)
[2020-02-03] MEDS: SULFA/TRIMETH 800/160 (DS) TAB 1 EA TAB PO SCH (20:29)
[2020-02-03] MEDS: LORATADINE 10 MG TAB PO SCH (20:29)
[2020-02-03] MEDS: ATORVASTATIN 20 MG TAB PO SCH (20:29)
[2020-02-03] MEDS: CLOPIDOGREL 75 MG TAB PO SCH (20:29)
[2020-02-03] MEDS: FLUCONAZOLE 100 MG TAB PO SCH (20:30)
[2020-02-04] MEDS: HYDROcodone 10MG/APAP 325MG 1 EA TAB PO PRN ×3 (00:01→20:46)
[2020-02-04] MEDS: PANTOPRAZOLE SODIUM TAB 40 MG PO SCH (06:07)
[2020-02-04] MEDS: ASPIRIN (ENTERIC COATED) 81 MG TAB PO SCH (09:16)
[2020-02-04] MEDS: SULFA/TRIMETH 800/160 (DS) TAB 1 EA TAB PO SCH ×2 (09:16→20:46)
[2020-02-04] MEDS: MAGNESIUM OXIDE 400 MG TAB PO SCH (09:17)
[2020-02-04] MEDS: METOPROLOL SUCCINATE XL 25 MG TAB PO SCH (09:17)
[2020-02-04] MEDS: diltiaZEM HCL CD 180 MG CAP PO SCH (09:17)
[2020-02-04] MEDS: CALCIUM CARBONATE-VITAMIN D 500 MG TAB PO SCH ×2 (09:17→20:46)
[2020-02-04] MEDS: CITALOPRAM HBR 20 MG TAB PO SCH (09:18)
[2020-02-04] MEDS: FLUCONAZOLE 100 MG TAB PO SCH (09:18)
[2020-02-04] MEDS: BIFIDOBACTERIUM INFANTIS 4 MG CAP PO SCH (09:18)
[2020-02-04] MEDS: POLYETHYLENE GLYCOL 3350 17 GM PCKT PO SCH (09:19)
[2020-02-04] MEDS: SODIUM CHLORIDE 0.9% (FLUSH) 10 ML SYG IV SCH ×2 (09:50→20:49)
[2020-02-04] MEDS: ENOXAPARIN SODIUM 30 MG/0.3 ML SYG SUBCU SCH ×2 (10:29→23:30)
--- NOTE | 2020-02-04 11:07 | PN ---
SUPERVISING PHYSICIAN: Brian Aranda MD DATE: 02/03/20 SUBJECTIVE: The patient is sitting up in her chair. The daughter is at the bedside. Her main complaint is anxiety and she is worried about her discharge and how she is going to do with her hip. She also asked to keep her Sanchez until after she is discharged. Her granddaughter is a nurse and will take over care of the Sanchez. At this point, she will probably be discharged on Thursday pending her physical therapy over the weekend. OBJECTIVE: VITAL SIGNS: Temperature is 98.3, heart rate 72, blood pressure 132/71, respiratory rate 18, oxygen saturation 97% on 2 liters nasal cannula. RESPIRATORY: Essentially clear to auscultation bilaterally. CARDIAC: Regular rate and rhythm. GI: Abdomen soft, nondistended, non-tender. Bowel sounds are positive. EXTREMITIES: Bilateral pedal pulses are palpable at +2. Dressing to her left lateral hip is dry and intact. NEUROLOGICAL: She is awake, alert, and oriented x3. LABORATORY: Hemoglobin 9, hematocrit 26.5. All other labs and films have been reviewed via the EMR. ASSESSMENT: 1. Left intertrochanteric hip fracture status post same level fall status post gamma nail performed by Dr. Vinod Ennis, orthopedic surgeon, postoperative day #1. 2. History of atrial fibrillation. 3. Coronary artery disease with previous coronary artery bypass graft times 4 in 2007. 4. Chronic obstructive pulmonary disease without signs or symptoms of exacerbation. 5. Depression and anxiety. 6. Hypertension. 7. Chronic insomnia. 8. Chronic lumbar disc disease. 9. Osteoporosis. 10. History of transient ischemic attacks without any mention of any residual effects. PLAN: We will continue present supportive care. At this point, we will leave her Sanchez catheter in and I will put her on 10 days of Bactrim. She will also have some IV Ativan for her anxiety, Since her hemoglobin and hematocrit have dropped slightly and she had a hip repair, we will do AM labs. Encouraged good pulmonary hygiene. I talked to the granddaughter about Sanchez care afterwards and we will continue to monitor closely and follow as needed. #[id number] [facility]
[2020-02-04] MEDS ORDERED: ACETAMINOPHEN 325 MG TAB PO ONE (12:15)
[2020-02-04] MEDS ORDERED: diphenhydrAMINE HCL 50 MG/ML VIAL IV ONE (12:15)
[2020-02-04] MEDS ORDERED: FUROSEMIDE INJ 40 MG/4 ML VIAL IV ONE (12:15)
[2020-02-04] MEDS ORDERED: SODIUM CHLORIDE 0.9% 500ML 500 ML IVS SCH (12:30)
[2020-02-04] MEDS ORDERED: SODIUM CHLORIDE 0.9% 250ML 250 ML ONE (13:06)
[2020-02-04] MEDS ORDERED: SODIUM CHLORIDE 0.9% 250ML 250 ML IVS PRN (13:23)
--- NOTE | 2020-02-04 15:07 | PN ---
SUPERVISING PHYSICIAN: Brian Aranda MD DATE: 02/04/20 SUBJECTIVE: The patient is sitting up in her chair. She is on the phone. She has no complaints at this time. She feels much calmer with her medication I gave her yesterday. We did discuss that she would have 2 units of blood transfused today. . OBJECTIVE: VITAL SIGNS: Temperature is 97.9, heart rate 33, blood pressure 122/65, respiratory rate 20, oxygen saturation 98% on 1.5 liters nasal cannula. RESPIRATORY: Essentially clear to auscultation bilaterally. CARDIAC: Regular rate and rhythm. GI: Abdomen soft, nondistended, non-tender. Bowel sounds are positive. EXTREMITIES: Bilateral pedal pulses are palpable at +2. Dressing to her left lateral hip is dry and intact. NEUROLOGICAL: She is awake, alert, and oriented x3. LABORATORY: WBC 10,300. Hemoglobin 8, hematocrit 23.1. Her hemoglobin has dropped 3.2 grams since admission. Electrolytes are basically within normal limits except her calcium is slightly low at 7.9. All other labs and films have been reviewed via the EMR. ASSESSMENT: 1. Left intertrochanteric hip fracture status post same level fall status post gamma nail performed by Dr. Vinod Ennis, orthopedic surgeon, postoperative day #2. 2. Anemia, most likely from blood loss secondary to #1. 3. History of atrial fibrillation. 4. Coronary artery disease with previous coronary artery bypass graft times 4 in 2007. 5. Chronic obstructive pulmonary disease without signs or symptoms of exacerbation. 6. Depression and anxiety. 7. Hypertension. 8. Chronic insomnia. 9. Chronic lumbar disc disease. 10. Osteoporosis. 11. History of transient ischemic attacks without any mention of any residual effects. PLAN: We will continue present supportive care. Orthopedic issues will be per Dr. Vinod Ennis, orthopedic surgeon. She will continue with her physical therapy for strengthening and conditioning. I spoke with Dr. Ennis and due to her hemoglobin blood loss, we will go ahead and transfuse 2 units of packed red blood cells per protocol. I will do a CBC in the morning. I continued to encourage good pulmonary hygiene and we will continue to monitor closely and follow as needed. #[id number] [facility]TD[facility]
--- NOTE | 2020-02-04 15:43 | PN ---
DATE: 02/04/20 SUBJECTIVE: Ms. Garcia is doing well and she has good pain control right now. OBJECTIVE: She is afebrile. Vital signs are stable. ASSESSMENT: Status post gamma nail for intertrochanteric fracture. PLAN: At this point, she will be discharged, however, she did have a drop in her hematocrit. Because of that, she will receive some blood. Following that, we will recheck and make sure she has responded appropriately. #[id number] [facility]TD[facility]
[2020-02-04] MEDS ORDERED: ALPRAZolam 0.25 MG TAB PO PRN (19:22)
[2020-02-04] MEDS: MELATONIN 3 MG TAB PO SCH (20:46)
[2020-02-04] MEDS: DOCUSATE CALCIUM 240 MG CAP PO SCH (20:46)
[2020-02-04] MEDS: ATORVASTATIN 20 MG TAB PO SCH (20:46)
[2020-02-04] MEDS: CLOPIDOGREL 75 MG TAB PO SCH (20:47)
[2020-02-04] MEDS: LORATADINE 10 MG TAB PO SCH (20:49)
[2020-02-05] MEDS: HYDROcodone 10MG/APAP 325MG 1 EA TAB PO PRN ×2 (01:59→06:04)
[2020-02-05] MEDS: PANTOPRAZOLE SODIUM TAB 40 MG PO SCH (06:04)
[2020-02-05] MEDS: BIFIDOBACTERIUM INFANTIS 4 MG CAP PO SCH (08:53)
[2020-02-05] MEDS: MAGNESIUM OXIDE 400 MG TAB PO SCH (08:53)
[2020-02-05] MEDS: POLYETHYLENE GLYCOL 3350 17 GM PCKT PO SCH (08:53)
[2020-02-05] MEDS: ASPIRIN (ENTERIC COATED) 81 MG TAB PO SCH (08:53)
[2020-02-05] MEDS: FLUCONAZOLE 100 MG TAB PO SCH (08:53)
[2020-02-05] MEDS: diltiaZEM HCL CD 180 MG CAP PO SCH (08:53)
[2020-02-05] MEDS: SULFA/TRIMETH 800/160 (DS) TAB 1 EA TAB PO SCH ×2 (08:53→20:18)
[2020-02-05] MEDS: METOPROLOL SUCCINATE XL 25 MG TAB PO SCH (08:53)
[2020-02-05] MEDS: CITALOPRAM HBR 20 MG TAB PO SCH (08:53)
[2020-02-05] MEDS: CALCIUM CARBONATE-VITAMIN D 500 MG TAB PO SCH ×2 (08:53→20:17)
[2020-02-05] MEDS: SODIUM CHLORIDE 0.9% (FLUSH) 10 ML SYG IV SCH ×2 (08:54→20:19)
[2020-02-05] MEDS: ACETAMINOPHEN W/ COD #4 TAB 1EA TAB PO PRN ×3 (10:43→22:39)
[2020-02-05] MEDS: ENOXAPARIN SODIUM 30 MG/0.3 ML SYG SUBCU SCH ×2 (10:43→22:38)
[2020-02-05] MEDS ORDERED: HYDROcodone 5MG/APAP 325MG 1 EA TAB PO PRN (14:51)
--- NOTE | 2020-02-05 16:14 | PN ---
SUPERVISING PHYSICIAN: Brian Aranda MD DATE: 02/05/20 SUBJECTIVE: The patient is lying bed. Her daughter is at the bedside. Earlier today her granddaughter reported that she had been seeing things outside that were not there. She was having some mild visual hallucinations. She was oriented to person, place and time but after reorientation she agreed that she was seeing things that were not there. She denies any shortness of breath, nausea or vomiting. No chest pain. OBJECTIVE: VITAL SIGNS: Temperature is 97.8, heart rate 83, blood pressure 122/73, respiratory rate 16, oxygen saturation 92% on room air. GENERAL: This is an 79 year-old female patient lying in her hospital bed in no acute distress. RESPIRATORY: Essentially clear to auscultation bilaterally. CARDIAC: Regular rate and rhythm. GI: Abdomen soft, nondistended, non-tender. Bowel sounds are positive. EXTREMITIES: No cyanosis, clubbing, or edema. Dressing to her left lateral hip is dry and intact. NEUROLOGICAL: She is awake, alert, and oriented x3. LABORATORY: WBC 9.7 with hemoglobin 9.8, hematocrit 28.5. All other labs and films have been reviewed via the EMR. ASSESSMENT: 1. Left intertrochanteric hip fracture status post same level fall status post gamma nail performed by Dr. Vinod Ennis, orthopedic surgeon, postoperative day #3. 2. Anemia, most likely from blood loss secondary to #1. 3. History of atrial fibrillation. 4. Coronary artery disease with previous coronary artery bypass graft times 4 in 2007. 5. Chronic obstructive pulmonary disease without signs or symptoms of exacerbation. 6. Depression and anxiety. 7. Hypertension. 8. Chronic insomnia. 9. Chronic lumbar disc disease. 10. Osteoporosis. 11. History of transient ischemic attacks without any mention of any residual effects. PLAN: We will continue present supportive care. Orthopedic issues will be per Dr. Vinod Ennis, orthopedic surgeon. She will continue with her physical therapy for strengthening and conditioning. Tomorrow we will need to decide on her discharge plan. At this point, I believe she wants to go home with Home Health, physical therapy ill need to reevaluate tomorrow. I have discontinued her [place] and just given her Tylenol #4 for her pain. Will reevaluate and change that prescription as needed. Otherwise, we will continue to monitor closely and follow as needed. #[id number] MTDD
[2020-02-05] MEDS: IV SET AND CAP CHANGE INJ INJ SCH (19:12)
[2020-02-05] MEDS: DOCUSATE CALCIUM 240 MG CAP PO SCH (20:17)
[2020-02-05] MEDS: MELATONIN 3 MG TAB PO SCH (20:18)
[2020-02-05] MEDS: CLOPIDOGREL 75 MG TAB PO SCH (20:18)
[2020-02-05] MEDS: LORATADINE 10 MG TAB PO SCH (20:19)
[2020-02-05] MEDS: ATORVASTATIN 20 MG TAB PO SCH (20:19)
[2020-02-05] MEDS ORDERED: MAGNESIUM HYDROXIDE 30 ML UD PO ONE (21:00)
[2020-02-05] MEDS ORDERED: BISACODYL SUPPOSITORY 10 MG PR ONE (21:00)
[2020-02-06] MEDS: ACETAMINOPHEN W/ COD #4 TAB 1EA TAB PO PRN (03:21)
[2020-02-06] MEDS: PANTOPRAZOLE SODIUM TAB 40 MG PO SCH (06:00)
[2020-02-06] MEDS: ONDANSETRON INJ 4 MG/2 ML VIAL IV PRN (07:46)
[2020-02-06] MEDS ORDERED: METOCLOPRAMIDE HCL INJ 10 MG/2 ML VIAL ONE (09:56)
[2020-02-06] MEDS ORDERED: METOCLOPRAMIDE HCL INJ 10 MG/2 ML VIAL IV ONE (09:59)
[2020-02-06] MEDS: SODIUM CHLORIDE 0.9% (FLUSH) 10 ML SYG IV SCH (10:06)
[2020-02-06 10:22] VITALS: O2SAT 95
[2020-02-06] MEDS: FLUCONAZOLE 100 MG TAB PO SCH (10:34)
[2020-02-06] MEDS: CALCIUM CARBONATE-VITAMIN D 500 MG TAB PO SCH (10:34)
[2020-02-06] MEDS: BIFIDOBACTERIUM INFANTIS 4 MG CAP PO SCH (10:34)
[2020-02-06] MEDS: diltiaZEM HCL CD 180 MG CAP PO SCH (10:34)
[2020-02-06] MEDS: SULFA/TRIMETH 800/160 (DS) TAB 1 EA TAB PO SCH (10:34)
[2020-02-06] MEDS: POLYETHYLENE GLYCOL 3350 17 GM PCKT PO SCH (10:34)
[2020-02-06] MEDS: CITALOPRAM HBR 20 MG TAB PO SCH (10:34)
[2020-02-06] MEDS: MAGNESIUM OXIDE 400 MG TAB PO SCH (10:34)
[2020-02-06] MEDS: ASPIRIN (ENTERIC COATED) 81 MG TAB PO SCH (10:34)
[2020-02-06] MEDS: METOPROLOL SUCCINATE XL 25 MG TAB PO SCH (10:37)
[2020-02-06] MEDS: ENOXAPARIN SODIUM 30 MG/0.3 ML SYG SUBCU SCH (11:32)
[2020-02-06] MEDS ORDERED: ACETAMINOPHEN W/COD #3 TAB 1 EA TAB ONE (13:09)
[2020-02-06] MEDS ORDERED: ACETAMINOPHEN W/COD #3 TAB 1 EA TAB PO PRN (13:12)
[2020-02-06 15:53] VITALS: BP 118/70; TEMP 97.4
--- NOTE | 2020-02-07 10:02 | OP ---
DATE OF PROCEDURE: 02/02/20 PREOPERATIVE DIAGNOSIS: 1. Intertrochanteric fracture of the left hip. POSTOPERATIVE DIAGNOSIS: 1. Intertrochanteric fracture of the left hip. PROCEDURE: 1. Gamma nail, left hip. SURGEON: Vinod Ennis MD. SUBSTITUTE CROSSING GUARD: Claude Ponce CST, SA-C. ANESTHESIA: General anesthesia. COMPLICATIONS: None. FINDINGS: Intertrochanteric fracture of the left hip. INDICATION: Ms. Garcia has a history of a fall which occurred and she had the acute onset of pain. Unfortunately, she did have a fracture of the hip on x- ray. After discussing the risks, benefits and alternatives to operative therapy with her, she gave informed consent for the above procedure. PROCEDURE: The patient was brought to the Operating Room and placed in the supine position. General anesthesia was administered and the patient was placed on the fracture table. The fracture was provisionally reduced under fluoroscopic imaging and after reduction, the leg and hemipelvis were sterilely prepped and draped. An incision was made just proximal to the greater trochanter and dissection was carried through the iliotibial band and down to the greater trochanter. A starting pin was placed and a one-step reamer was used to open the femoral canal. A 125 degree angled Gamma nail was inserted into the canal to the appropriate level. A guide pin was placed from the lateral cortex into the femoral head. The appropriate length compression screw was measured and inserted with the placement guided under direct imaging. Following that, the distal locking screw was drilled, measured, and placed under imaging. The proximal locking screw was placed through the outrigger into the top of the nail and the outrigger removed. The final construct was imaged and the wounds were thoroughly irrigated, followed by closure with Monocryl suture. Sterile dressings were placed. The patient was awoken from anesthesia and taken to the Recovery Room. POSTOPERATIVE PLAN: She will be partial weightbearing starting on postoperative day 1. #[id number] MTDD
--- NOTE | 2020-02-07 10:28 | PN ---
DATE: 02/06/20 SUBJECTIVE: Ms. Garcia is doing well. Her pain is well controlled. OBJECTIVE: She is afebrile. Vital signs are stable. Wounds are clean. There are no signs or symptoms of infection. ASSESSMENT: Status post Gamma nail. PLAN: The plan at this point is for discharge to home. She does have nursing assistance at home. #[id number] MTDD
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
== END 2020-02-06 15:15 | disposition home health service (06) | DRG 481 ==
LOC: ER 22:04 → MS 02-02 00:25 → OBSVTOIN 02-02 00:25
PROVIDERS: ADMIT Nurse Practitioner Family; ATTEND Nurse Practitioner Family
PROC: 0QS736Z Reposition Left Upper Femur with Intramedullary Internal Fixation Device, Percutaneous Approach (ICD-10-PCS; principal; 2020-02-02 10:15)
PROC: 30233N1 Transfusion of Nonautologous Red Blood Cells into Peripheral Vein, Percutaneous Approach (ICD-10-PCS; 2020-02-04)
DX: S72.145A Nondisplaced intertrochanteric fracture of left femur, initial encounter for closed fracture (principal); D62 Acute posthemorrhagic anemia; W01.0XXA Fall on same level from slipping, tripping and stumbling without subsequent striking against object, initial encounter; Y92.009 Unspecified place in unspecified non-institutional (private) residence as the place of occurrence of the external cause; I48.91 Unspecified atrial fibrillation; J44.9 Chronic obstructive pulmonary disease, unspecified; I25.10 Atherosclerotic heart disease of native coronary artery without angina pectoris; F41.9 Anxiety disorder, unspecified; F32.9 Major depressive disorder, single episode, unspecified; I10 Essential (primary) hypertension; G47.00 Insomnia, unspecified; M81.0 Age-related osteoporosis without current pathological fracture; Z95.1 Presence of aortocoronary bypass graft; Z86.73 Personal history of transient ischemic attack (TIA), and cerebral infarction without residual deficits

== ENCOUNTER → 2020-03-19 | Outpatient (CLI) | payer MEDICARE, OTHER ==
--- NOTE | 2020-03-19 11:06 | RAD ---
EXAM DESCRIPTION: Hip,Left 2 Views CLINICAL HISTORY: 79 years, Female, INTERTROCHANTERIC FRACTURE LEFT FEMUR COMPARISON: Previous x-ray images of the left hip February 20, 2020 TECHNIQUE: AP and frog leg lateral views of the left hip FINDINGS: 2 views of the left hip reveal orthopedic hardware traversing intratrochanteric fracture with increased callus formation and decreasing visualization of the fracture line consistent with interval healing. The fracture line through the greater trochanter on frog-leg lateral view appears denser consistent with bridging callus and partial healing here. No underlying lytic bone lesion. IMPRESSION: Negative for fracture or dislocation. Orthopedic hardware in the proximal left femur traversing intertrochanteric fracture. Electronically signed by: Gonzalo Titus MD 03/19/2020 11:04 AM CDT
== END ==
LOC: RAD 10:24
PROVIDERS: ATTEND Orthopaedic Surgery
DX: S72.142D Displaced intertrochanteric fracture of left femur, subsequent encounter for closed fracture with routine healing (principal); Z98.890 Other specified postprocedural states

== ENCOUNTER → 2020-03-22 | Outpatient (CLI) | payer MEDICARE, OTHER ==
--- NOTE | 2020-03-22 12:34 | MAM ---
EXAM DESCRIPTION: 3D Screening BILATERAL : Digital Mammography. CLINICAL HISTORY: 79 years Female SCREENING COMPARISON: 2-D digital screening bilateral mammography September 2014. TECHNIQUE: Bilateral CC and MLO projection full-field images, digital tomosynthesis mammographic technique. Bilateral digital 2-D full-field MLO images. CAD available for 2-D images. FINDINGS: The breast parenchymal density pattern is: Scattered areas of fibroglandular density. No skin thickening or nipple retraction. Axillary lymph nodes. Skin mole markers right breast. Denser tissues in the anterior half of both breasts. Focal asymmetry in the right axilla abutting the pectoral muscle, seen only on the MLO images. Not well seen on the prior study. No new focal, stellate mass or density, focal asymmetry , and no suspicious microcalcifications left breast. IMPRESSION: BI-RADS CATEGORY: 0 - INCOMPLETE- Need additional imaging evaluation. RECOMMENDATIONS: FOLLOW-UP: Recall for additional imaging: Directed right breast ultrasound of the region of interest. Optional diagnostic right breast tomosynthesis depending on ultrasound findings.. Written communication concerning the IMPRESSION and Follow-up, will be mailed to the patient and referring health care provider. Electronically signed by: Claude Hooks MD 03/22/2020 12:33 PM CDT
== END ==
LOC: MAMMO 09:30
PROVIDERS: ATTEND Family Medicine
DX: Z12.31 Encounter for screening mammogram for malignant neoplasm of breast (principal)

== ENCOUNTER → 2020-04-02 | Outpatient (CLI) | payer MEDICARE, OTHER ==
--- NOTE | 2020-04-02 11:49 | RAD ---
EXAM DESCRIPTION: Hip,Left 2 Views CLINICAL HISTORY: 79 years Female, FX COMPARISON: 03/19/2020. FINDINGS: The visualized bones are well-mineralized. Continued healing of the intertrochanteric fracture of the left femur with intact hardware. The soft tissues appear grossly unremarkable. IMPRESSION: Continued healing of the intertrochanteric fracture of the left femur with intact hardware. Electronically signed by: Lanny Olivares MD 04/02/2020 11:47 AM CDT
== END ==
LOC: RAD 11:12
PROVIDERS: ATTEND Orthopaedic Surgery
DX: S72.142D Displaced intertrochanteric fracture of left femur, subsequent encounter for closed fracture with routine healing (principal)

== ENCOUNTER → 2020-05-23 | Outpatient (CLI) | payer MEDICARE, OTHER | LOC: YCHH 15:32 | PROVIDERS: ATTEND Family Medicine | DX: N39.0 Urinary tract infection, site not specified (principal) ==

== ENCOUNTER → 2020-06-18 | Outpatient (CLI) | payer MEDICARE, OTHER ==
--- NOTE | 2020-06-19 14:15 | CT ---
EXAM DESCRIPTION: Chest w/o Contrast : Computed Tomography. 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 TECHNIQUE: Spiral-axial scans at 5 x 5 mm intervals through the lungs and thorax without IV contrast. 2.5 x 5 mm lung algorithm axial reconstructions. 2.0 Mm reconstructions. Total Exam DLP: 309 mGy-cm. This exam was performed according to our departmental dose-optimization program which includes automated exposure control, adjustment of the mA and/or kV according to patient size and/or use of iterative reconstruction technique; to reduce radiation dose to as low as reasonably achievable (ALARA). Nodule measurements under 10 mm are given as mean value of 3 axes diameters. FINDINGS: Lungs and large airways: 4.2 mm groundglass subpleural nodule posterior inferior right upper lobe associated with other smaller groundglass nodules anterior to the lateral right major fissure on series 4, image 48. Perifissural thickening and nodules also present, but subclinical. 7.9 mm lobulated nodule versus focal pleural thickening or parenchymal scarring subpleural posterior medial left lower lateral recess on image 4/110. Pleural parenchymal scarring slightly more superior. Pleural parenchymal scarring in the inferior lingula laterally with 4 mm nodule subpleural on image 4/78 Pleural spaces: Focal fatty hernia in the posterior right hemidiaphragm. No bowel and no fluid in the hernia. Otherwise negative. Mediastinum and Gladis: Evaluation limited due to lack of IV contrast moderate-sized paraesophageal hernia to the left of the esophagus. Small mediastinal and hilar nodes Great vessels and Heart: Evaluation limited due to lack of IV contrast. Pericardial and periaortic surgical clips. 3.5 cm diameter of the descending aortic arch 3.4 cm diameter of the arch at the level of the right innominate artery. Atherosclerotic calcifications in several brachiocephalic vessels and the aorta. Calcifications coronary arteries. Soft tissues of neck base, axillae, and chest wall: Evaluation limited due to lack of IV contrast. Normal sized lymph nodes in the axilla bilaterally. Upper abdomen: No free air or free fluid. Osseous structures: Spondylosis at multiple levels. Sternotomy wires. IMPRESSION: 1. Multiple subpleural according to Fleischner Society guidelines for multiple nodules as noted above. Nodules in the right upper lobe may be groundglass. Largest in the medial posterior recess left lower lobe could also be related to scarring or pleural thickening. [facility] recommendations according to Fleischner Society guidelines for multiple pulmonary nodules: Nodule Size 6-8 mm Low-Risk Patient: CT at 3-[address] at 18-24 months Nodule Size 6-8 mm High-Risk Patient: CT at 3-6 months then at 18-24 months 2. Prior cardiovascular surgery including the heart. Ectasia of the aortic arch. 3. Focal fatty hernia posterior right hemidiaphragm with no obvious complications. 4. Moderate paraesophageal hernia. Electronically signed by: Claude Hooks MD 06/19/2020 2:13 PM CDT
== END ==
LOC: CT 09:36
PROVIDERS: ATTEND Internal Medicine
DX: C43.61 Malignant melanoma of right upper limb, including shoulder (principal); R91.8 Other nonspecific abnormal finding of lung field; I51.7 Cardiomegaly; K44.9 Diaphragmatic hernia without obstruction or gangrene; Z98.890 Other specified postprocedural states

== ENCOUNTER → 2020-06-25 | Outpatient (CLI) | payer MEDICARE, OTHER ==
--- NOTE | 2020-06-25 13:49 | RAD ---
EXAM DESCRIPTION: Hip,Left 2 Views CLINICAL HISTORY: 79 years Female, FRACTURE OF GREATER TROCHANTER LEFT COMPARISON: 04/02/2020 Findings: Two view(s)/radiograph(s) Healing internally fixated left femoral intertrochanteric fracture. No hardware complication. Anatomic alignment. Similar degenerative changes. Osteopenia. No acute fracture or dislocation. IMPRESSION: Healing internally fixated left femoral intertrochanteric fracture. Electronically signed by: Fritz Alvarez MD 06/25/2020 1:48 PM CDT
== END ==
LOC: RAD 09:44
PROVIDERS: ATTEND Orthopaedic Surgery
DX: Z01.810 Encounter for preprocedural cardiovascular examination (principal); Z01.811 Encounter for preprocedural respiratory examination; Z01.812 Encounter for preprocedural laboratory examination; C00.2 Malignant neoplasm of external lip, unspecified; S72.112D Displaced fracture of greater trochanter of left femur, subsequent encounter for closed fracture with routine healing; Z98.890 Other specified postprocedural states

== ENCOUNTER → 2020-07-09 | Outpatient (CLI) | payer MEDICARE, OTHER ==
--- NOTE | 2020-07-10 16:34 | US ---
EXAM DESCRIPTION: Breast,Right: Ultrasound. CLINICAL HISTORY: 79 yearsFemaleABNORMAL MAMMO. Focal asymmetry in the right axilla on screening right breast tomosynthesis. COMPARISON: Bilateral screening digital breast tomosynthesis March 22 TECHNIQUE: Transcutaneous scanning of the right breast utilizing sanabria-scale and Doppler modes. Scanning performed by the hospice director ; observation by Dr. Hooks. FINDINGS: Typical fatty tissues seen in the right axilla. Also accessory breast tissue. No dominant solid mass, no distinct cyst, no large calcifications, no fluid collection. Hypoechoic mass consistent with lymph node with central echogenicity measuring 6.7 x 3.3 x 5.3 mm. Nearby similar appearing lymph node measuring 5.4 x 6.2 x 3.9 mm not vascular. Both lymph nodes with wider than tall orientation and posterior acoustic enhancement. IMPRESSION: Benign exam. BIRAD CATEGORY: 2 BENIGN FINDINGS. RECOMMENDATIONS: FOLLOW UP: Return to routine digital bilateral mammographic screening, one year interval from March 2020. Written communication explaining the IMPRESSION and follow-up, will be mailed to the patient and referring health care provider. The FINDINGS and the FOLLOW-UP plan were reviewed in person with the patient after the examination. According to the [employer], yearly mammograms are recommended starting at age 40 and continuing as long as a woman is in good health. Any breast change noted on a breast self-exam should be reported promptly to the patient's healthcare provider. Breast MRI is recommended for women with an approximately 20-25% or greater lifetime risk of breast cancer, including women with a strong family history of breast or ovarian cancer and women who have been treated for Hodgkin's disease. A negative mammographic report should not delay tissue diagnosis in patients with significant clinical history or physical findings. Extremely dense breast tissue limits the sensitivity of digital mammography. Electronically signed by: Claude Hooks MD 07/10/2020 4:32 PM CDT
== END | disposition home or self-care (01) ==
LOC: MAMMO 10:00
PROVIDERS: ATTEND Family Medicine
DX: Z12.31 Encounter for screening mammogram for malignant neoplasm of breast (principal)

== ENCOUNTER 2020-08-31 08:32 | Observation (INO) | payer MEDICARE, OTHER ==
[2020-08-31] MEDS ORDERED: SODIUM CHLORIDE 0.9% (FLUSH) 10 ML SYG IV PRN ×2 (08:39→12:46)
--- NOTE | 2020-08-31 08:40 | ED.PDOC ---
History of Present Illness - General Time Seen by Provider: 08/31/20 08:38 Source: patient - History of Present Illness Initial Comments: 79-year-old female with past medical history of hypertension, CAD s/p CABG (2007) who is brought in by daughter from home for chief complaint of right- sided tingling and weakness. Patient reports symptoms began around 7:30 AM today at home. She reported she had constant tingling sensation involving her entire right lower extremity and right upper extremity which was associated with some weakness. She sat down at home and called her . She did not try to walk. She initially reported some burning abdominal discomfort across the lower abdomen which was associated with the episode. Reports sx's lasted for about 30 minutes and then resolved spontaneously w/o recurrence. No meds taken for relief. She reports she had a bowel movement this morning which was harder than usual. Additionally she reports nausea without emesis and urinary frequency. Denies any facial drooping, slurred speech, chest pain, dyspnea, cough, fevers, chills, dysuria/hematuria, leg swelling. PCP is Dr. Maher. She reports history of stroke in 2007. Allergies/Adverse Reactions: Allergies Hydromorphone [From Dilaudid] Allergy (Verified 08/31/20 09:02) Morphine Allergy (Verified 08/31/20 09:02) Home Medications: Ambulatory Orders Aspirin [Aspirin EC] 81 mg PO DAILY 06/26/14 Atorvastatin Calcium [Lipitor] 40 mg PO BEDTIME 06/26/14 Calcium Carbonate-Vitamin D [Calcium 600+D 600-200 mg-Unit] 1 tab PO BID 06/26/14 Citalopram Hydrobromide [Celexa] 20 mg PO DAILY 06/26/14 Clopidogrel Bisulfate [Plavix] 75 mg PO BEDTIME 06/26/14 Multiple Vitamins W/ Minerals [Centrum Silver] 1 tab PO DAILY 06/26/14 Polyethylene Glycol 3350 [Miralax] 17 gm PO DAILY 06/26/14 Diltiazem HCl Coated Beads [Cartia Xt] 180 mg PO DAILY 12/11/18 Metoprolol Succinate [Toprol Xl] 12.5 mg PO DAILY 12/11/18 Omeprazole Magnesium [Prilosec Otc] 40 mg PO DAILY 12/11/18 Acetaminophen W/ Codeine [Tylenol W/ CODEINE #3] 1 ea PO QID PRN 02/02/20 Bifidobacterium Infantis [Align] 4 mg PO DAILY 02/02/20 Loratadine [Claritin] 10 mg PO BEDTIME 02/02/20 Melatonin 9 mg PO BEDTIME 02/02/20 Acetamin W/Cod #3 Tab [Tylenol w/CODEINE #3] 1 - 2 ea PO Q4H PRN #30 tab 02/06/20 Fluconazole [Diflucan Tab] 100 mg PO DAILY PRN #3 tab 02/06/20 Metoclopramide HCl [Reglan] 10 mg PO Q6HRS PRN #15 tab 02/06/20 Ondansetron HCl [Zofran] 4 mg PO Q4HR #15 tab 02/06/20 Rivaroxaban [Xarelto] 10 mg PO DAILY #35 tab 02/06/20 Sulfa/Trimeth 800/160 (Ds) Tab [Bactrim DS] 1 ea PO Q12H #20 tab 02/06/20 Review of Systems - Review of Systems Review of Systems: 08/31/20 08:59 as per HPI All other Systems: Reviewed and Negative Past Medical History (General) - Patient Medical History Hx Seizures: No Hx Stroke: No Hx Dementia: No Hx Asthma: No Hx of COPD: Yes Hx Cardiac Disorders: Yes Hx Congestive Heart Failure: No Hx Pacemaker: No Hx Hypertension: Yes Hx Thyroid Disease: No Hx Diabetes: No Hx Gastroesophageal Reflux: No Hx Renal Disease: No Hx Cancer: Yes - skin cancer on nose Hx of HIV: No Hx Hepatitis C: No Hx MRSA: No - Vaccination History Hx Influenza Vaccination: Yes Hx Pneumococcal Vaccination: Yes - Social History Hx Tobacco Use: No Hx Alcohol Use: No Hx Substance Use: No Hx Physical Abuse: No Hx Emotional Abuse: No Family Medical History - Family History Father Living Status: Age at (years of age): 88 Cause of : heart disease Mother Family History: No Known Living Status: Age at (years of age): 90 Physical Exam - Physical Exam General Appearance: Alert, Comfortable, No apparent distress Eye Exam: bilateral normal Ears, Nose, Throat: hearing grossly normal, normal ENT inspection, normal pharynx Neck: non-tender, full range of motion, supple, normal inspection Respiratory: lungs clear, normal breath sounds, no respiratory distress, no accessory muscle use Cardiovascular/Chest: normal peripheral pulses, regular rate, rhythm, no edema, no gallop, no JVD, no murmur Peripheral Pulses: radial,right: 2+, radial,left: 2+ Gastrointestinal/Abdominal: soft, abnormal bowel sounds - Diminished, tenderness - mild to suprapubic region w/o guarding or rebound Back Exam: normal inspection, no CVA tenderness, no vertebral tenderness Extremity: normal range of motion, non-tender, normal inspection, no pedal edema, no calf tenderness, normal capillary refill 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 NIH score is 1 for right leg drift at 10 seconds but did not hit the bed. Blood pressure 160s/80s, vitals otherwise normal. -Obtain cardiac and stroke evaluation. Obtain x-ray imaging of the chest and abdomen, EKG, UA. 08/31/20 10:29 -Patient remains stable. There has been no recurrence of symptoms. NIH score remains unchanged. -CT imaging of the head reveals evidence of prior infarcts and microvascular ischemic changes but no acute processes -Blood work largely unremarkable, UA pending -X-ray of the abdomen does reveal some mild constipation -Discussed all findings with the patient and her daughter at bedside. Discussed possibility of transient ischemic attack. Advised hospital placement for further observation. Patient and her daughter agree. I spoke with Christal Boyd who accepts the patient to her service. We have given aspirin 324 mg p.o. in the ED Chemo Valenzuela MD Billing #[id number] 08/31/20 08:39 Sodium Chloride 0.9% (Flush) [Saline Flush Syringe] 10 ml IV PRN PRN Pulse Oximetry Assessment DAILY UA [URINALYSIS] Stat 08/31/20 09:00 EKG STAT Pulse Ox Daily Laboratory Results - last 24 hr 08/31/20 08/31/20 08/31/20 09:10 09:10 09:10 WBC 5.8 RBC 4.33 Hgb 12.8 Hct 38.0 MCV 87.7 MCH 29.5 MCHC 33.6 RDW 13.0 Plt Count 223 MPV 7.1 L Absolute Neuts (auto) 3.40 Absolute Lymphs (auto) 1.40 Absolute Monos (auto) 0.60 Absolute Eos (auto) 0.20 Absolute Basos (auto) 0.10 Neutrophils % 58.8 Lymphocytes % 24.9 Monocytes % 10.9 H Eosinophils % 4.3 Basophils % 1.1 Sodium 140 Potassium 4.0 Chloride 104 Carbon Dioxide 27 Anion Gap 13.0 BUN 14 Creatinine 0.61 BUN/Creatinine Ratio 23.0 H Random Glucose 99 Serum Osmolality 279.9 Calcium 9.0 Total Bilirubin 0.6 AST 21 ALT 14 Alkaline Phosphatase 68 Troponin I < 0.02 B-Natriuretic Peptide 107.0 H Serum Total Protein 6.8 Albumin 4.0 Globulin 2.8 Albumin/Globulin Ratio 1.4 - EKG/XRAY/CT EKG: Sinus - Normal sinus rhythm, heart rate 60, left anterior fascicular block present, ST elevations noted, Q waves present in anteroseptal leads likely indicative of prior UT, left axis deviation present, [place] interval slightly prolonged 204 ms, QT interval normal, compared to 02/02/2020 EKG appears largely same XRAY: chest - No acute processes per my read - Additional EKG/XRAY/Consults XRAY #2: abdomen - Nonspecific nonobstructive bowel gas pattern. Mild constipation is present per my read Departure - Departure Clinical Impression: TIA (transient ischemic attack) Constipation Qualifiers: Constipation type: unspecified constipation type Qualified Code(s): K59.00 - Constipation, unspecified Time of Disposition: 10:31 Disposition: Admit Patient Condition: Fair Diet: resume usual diet Referrals: Trip Maher MD [Primary Care Provider] - 1-2 Weeks Home Medications: Ambulatory Orders Aspirin [Aspirin EC] 81 mg PO DAILY 06/26/14 Atorvastatin Calcium [Lipitor] 40 mg PO BEDTIME 06/26/14 Calcium Carbonate-Vitamin D [Calcium 600+D 600-200 mg-Unit] 1 tab PO BID 06/26/14 Citalopram Hydrobromide [Celexa] 20 mg PO DAILY 06/26/14 Clopidogrel Bisulfate [Plavix] 75 mg PO BEDTIME 06/26/14 Multiple Vitamins W/ Minerals [Centrum Silver] 1 tab PO DAILY 06/26/14 Polyethylene Glycol 3350 [Miralax] 17 gm PO DAILY 06/26/14 Diltiazem HCl Coated Beads [Cartia Xt] 180 mg PO DAILY 12/11/18 Metoprolol Succinate [Toprol Xl] 12.5 mg PO DAILY 12/11/18 Omeprazole Magnesium [Prilosec Otc] 40 mg PO DAILY 12/11/18 Acetaminophen W/ Codeine [Tylenol W/ CODEINE #3] 1 ea PO QID PRN 02/02/20 Bifidobacterium Infantis [Align] 4 mg PO DAILY 02/02/20 Loratadine [Claritin] 10 mg PO BEDTIME 02/02/20 Melatonin 9 mg PO BEDTIME 02/02/20 Acetamin W/Cod #3 Tab [Tylenol w/CODEINE #3] 1 - 2 ea PO Q4H PRN #30 tab 02/06/20 Fluconazole [Diflucan Tab] 100 mg PO DAILY PRN #3 tab 02/06/20 Metoclopramide HCl [Reglan] 10 mg PO Q6HRS PRN #15 tab 02/06/20 Ondansetron HCl [Zofran] 4 mg PO Q4HR #15 tab 02/06/20 Rivaroxaban [Xarelto] 10 mg PO DAILY #35 tab 02/06/20 Sulfa/Trimeth 800/160 (Ds) Tab [Bactrim DS] 1 ea PO Q12H #20 tab 02/06/20 Critical Care Note - Critical Care Note Total Time (mins): 30 Comments: Critical Care Time: Upon my evaluation, this patient had a high probability of life-threatening deterioration due to transient ischemic attack, which required my direct attention, intervention, and management. I have provided 30 minutes of critical care time exclusive of separately billable procedures. My time included: direct patient care, review of labs and radiology, obtaining history from and counseling the patient and the family, discussion with consultants and/or other medical personnel, documentation, and monitoring for potential decompensation. Decision To Admit - Decistion To Admit Decision to Admit Reason: Admit from ER Decision to Admit Date: 08/31/20 Decision to Admit Time: 10:31
--- NOTE | 2020-08-31 09:52 | CT ---
EXAM: Head CLINICAL HISTORY: R-sided tingling and weakness, hx of CVA COMPARISON STUDY: CT head from December 11, 2018 TECHNICAL: Non-contrasted CT images of the brain were performed. FINDINGS: There is mild diffuse cerebral and cerebellar atrophy. There are mild periventricular white matter low-density changes suggesting microvascular disease. Small basal ganglion lacunar infarcts are present. The previous right posterior infarction is unchanged. There is no intracranial hemorrhage, mass, or mass effect. There are no imaging findings that would suggest an acute territorial infarction. The calvarium is intact. IMPRESSION: MILD ATROPHY AND MICROVASCULAR WHITE MATTER CHANGES WITHOUT CHANGES OF AN ACUTE INTRACRANIAL ABNORMALITY. ACUTE INFARCT MAY BE INAPPARENT ON A BACKGROUND OF MICROVASCULAR DISEASE. MRI CAN BE PERFORMED IF CLINICALLY INDICATED. This exam was performed according to our departmental dose-optimization program, which includes automated exposure control, adjustment of the mA and/or kV according to patient size and/or use of iterative reconstruction technique. Electronically signed by: Anton Espinoza MD 08/31/2020 9:50 AM CDT
[2020-08-31] MEDS ORDERED: ASPIRIN (CHEWABLE) 81 MG TAB PO ONE (09:59)
--- NOTE | 2020-08-31 10:00 | RAD ---
EXAM DESCRIPTION: Abdomen 1 View CLINICAL HISTORY: 79 years Female, Lower burning abd pain, constipation COMPARISON: None. TECHNIQUE: Single view radiograph of the abdomen. IMPRESSION: Clear lung bases. Nondilated bowel gas pattern. Mild colonic stool. No pathologic calcification overlying the renal shadows or expected course of the ureters, although evaluation is somewhat limited secondary to the patient's scoliotic curvature and overlying bowel gas/stool. Gamma nail the proximal left femur. Moderate right greater than left hip arthrosis. Electronically signed by: Rodriguez Gasca MD 08/31/2020 9:59 AM CDT
--- NOTE | 2020-08-31 10:01 | RAD ---
EXAM DESCRIPTION: Chest,1 View CLINICAL HISTORY: 79 years Female, R-sided tingling and numbness COMPARISON: 02/01/2020 TECHNIQUE: Single view radiograph of the chest. IMPRESSION: Enlarged cardiac silhouette. Partially calcified aorta. Small moderate hiatal hernia with air-fluid level. Prior sternotomy. Stable surgical clips along the left mediastinum and hilum. Scattered basilar atelectasis. No pleural effusion or pneumothorax. Thoracic spondylosis. Chronic right rib fractures. Electronically signed by: Rodriguez Gasca MD 08/31/2020 10:00 AM CDT
[2020-08-31] MEDS ORDERED: ONDANSETRON INJ 4 MG/2 ML VIAL IV PRN (12:46)
[2020-08-31] MEDS ORDERED: ACETAMINOPHEN 325 MG TAB PO PRN (12:46)
[2020-08-31] MEDS ORDERED: HYDROcodone 7.5MG/APAP 325MG 1 EA TAB PO PRN (12:51)
--- NOTE | 2020-08-31 12:54 | MRI ---
EXAM DESCRIPTION: Brain w/o Contrast: MRI. CLINICAL HISTORY: TIA with right sided weakness and hx of TIA COMPARISON: MRI scan of the brain and orbits without and with IV contrast August 2017 TECHNIQUE: Multiplanar, high-field MRI unit, multiple diffusion sequences, multiple conventional sequences without contrast. FINDINGS: Focal area of hyperintense FLAIR and T2-weighted signal in the posterior left parietal lobe abutting the posterior left ventricle has enlarged since the prior study indicating gliosis with a small area of encephalomalacia which is also developed anteriorly. This indicates a mature chronic CVA compared to the prior study. Adjacent cortical atrophy and atrophy abutting the posterior left sylvian fissure with no evidence of mass effect, hemorrhage, or diffusion restriction. Bilateral multiple foci of hyperintense FLAIR and T2-weighted signal in the periventricular white matter and sub-cortical white matter. Also bilateral periventricular white matter and fluid lesions the show slight progression since the prior study. No diffusion restriction. No hemorrhage, no cerebral edema, no midline shift.. Similar small foci in the bilateral basal ganglia, most prevalent in the anterior right ganglia, with no diffusion restriction. No hemorrhage, no cerebral edema, no mass-effect . Normal signal in the brainstem and cerebellar hemispheres.. Concordance of the diffusion and non-diffusion sequences in the remaining brain, with no diffusion restriction. Cortical sulci, ventricles, and other CSF spaces, and the subdural spaces are otherwise physiologic for the patient's age, noted earlier in the FINDINGS. No effacement or displacement. No midline shift. No extra-axial hemorrhage. Normal flow signal void in the major vessels of the [place], and the venous sinuses. IACs are symmetric bilaterally. Normal signal in the bilateral mastoid air cells. No mass effect in the bilateral cerebellopontine angles. Pituitary gland occupies all of the sella, mildly enlarged, stable since the prior study. Base of the cerebellar tonsils is at the level of the foramen magnum. Minimal chronic bilateral paranasal sinus thickening.. The bony calvarium is intact. IMPRESSION: 1. Mature old CVA right posterior parietal lobe abutting the posterior right ventricle with encephalomalacia, atrophy, and gliosis. No mass effect, no cerebral edema, no hemorrhage, no diffusion restriction. Other white matter findings in the cortex and basal ganglia are stable with no hemorrhage or diffusion restriction. 2. Normal diffusion study without restriction indicating no significant ischemia, no acute or subacute infarction. 3. Mild enlargement of the pituitary gland is stable. Minimal chronic paranasal sinusitis. Electronically signed by: Claude Hooks MD 08/31/2020 12:52 PM CDT
[2020-08-31] MEDS ORDERED: IV SET AND CAP CHANGE INJ INJ SCH (13:00)
--- NOTE | 2020-08-31 14:04 | US ---
EXAM DESCRIPTION: Carotid Duplex: ULTRASOUND. CLINICAL HISTORY: 79 years Female TIA COMPARISON: None. TECHNIQUE: Transcutaneous scanning utilizing sanabria-scale and Doppler modes to evaluate the bilateral carotid systems and vertebral arteries. Percentage of diameter of stenosis or no stenosis recorded will be based upon NASCET criteria. FINDINGS: Peak systolic/end diastolic velocities (CM-Sec) CCA Right 69/8 Left 68/13. ICA Right proximal 59/12, mid 74/15. Left proximal 51/10, Distal 73/7. Vertebral Right 69/13 Left 68/7. ECA (PS Only) Right 46 left 45. ICA/CCA peak systolic velocity ratio: Right 1.1 Left 1.9 ICA/CCA end diastolic velocity ratio: Right 1.1 Left 0.6 Vertebral arteries: antegrade flow. Comments: Bilateral atherosclerotic calcifications. Bilateral spectral broadening in the ICA waveforms. Area and diameter stenosis in the right carotid system less than 10%. Area and diameter stenosis in the left carotid system less than 25%. IMPRESSION: 1. Doppler evaluation of the bilateral carotid systems and vertebral arteries shows no hemodynamically significant stenoses (less than 70%). 2. Moderate plaque in the carotid arteries bilaterally. Bilateral vertebral arteries showed antegrade-cephalad flow. Electronically signed by: Claude Hooks MD 08/31/2020 2:02 PM CDT
[2020-08-31] MEDS: tiZANidine 4 MG TAB PO SCH ×2 (15:48→20:18)
[2020-08-31] MEDS ORDERED: ENOXAPARIN SODIUM 40 MG/0.4 ML SYG SUBCU ONE (19:05)
[2020-08-31] MEDS ORDERED: ATORVASTATIN 20 MG TAB PO ONE (19:05)
[2020-08-31] MEDS ORDERED: CLOPIDOGREL 75 MG TAB ONE (19:05)
[2020-08-31] MEDS ORDERED: MELATONIN 3 MG TAB ONE (19:07)
[2020-08-31] MEDS: SODIUM CHLORIDE 0.9% (FLUSH) 10 ML SYG IV SCH (20:18)
[2020-08-31] MEDS ORDERED: CLOPIDOGREL 75 MG TAB PO SCH (21:00)
[2020-08-31] MEDS ORDERED: ATORVASTATIN 20 MG TAB PO SCH (21:00)
[2020-08-31] MEDS ORDERED: NON-FORMULARY MEDICATION 1 EA MIS (Atorvastatin Calcium [Lipitor] 40 MG) PO SCH (21:00)
[2020-08-31] MEDS ORDERED: ENOXAPARIN SODIUM 40 MG/0.4 ML SYG SUBCU SCH (21:00)
[2020-08-31] MEDS ORDERED: MELATONIN 3 MG TAB PO SCH (21:00)
[2020-09-01] MEDS ORDERED: PANTOPRAZOLE SODIUM IV 40 MG VIAL ONE (04:15)
[2020-09-01] MEDS ORDERED: PANTOPRAZOLE SODIUM IV 40 MG VIAL IV SCH (06:30)
[2020-09-01] MEDS ORDERED: diltiaZEM HCL CD 180 MG CAP ONE (06:48)
[2020-09-01] MEDS ORDERED: ASPIRIN TABLET 325 MG TAB ONE (06:48)
[2020-09-01] MEDS ORDERED: BIFIDOBACTERIUM INFANTIS 4 MG CAP ONE (06:48)
[2020-09-01] MEDS ORDERED: METOPROLOL SUCCINATE XL 25 MG TAB PO ONE (06:48)
[2020-09-01] MEDS ORDERED: LORATADINE 10 MG TAB PO ONE (06:48)
[2020-09-01] MEDS ORDERED: SODIUM CHLORIDE 0.9% (FLUSH) 10 ML SYG ONE (06:49)
[2020-09-01] MEDS ORDERED: CITALOPRAM HBR 20 MG TAB ONE (06:49)
[2020-09-01] MEDS ORDERED: tiZANidine 4 MG TAB ONE (08:24)
[2020-09-01] MEDS ORDERED: METOPROLOL SUCCINATE XL 25 MG TAB PO SCH (09:00)
[2020-09-01] MEDS ORDERED: BIFIDOBACTERIUM INFANTIS 4 MG CAP PO SCH (09:00)
[2020-09-01] MEDS ORDERED: LORATADINE 10 MG TAB PO SCH (09:00)
[2020-09-01] MEDS ORDERED: NON-FORMULARY MEDICATION 1 EA MIS (Probiotic Product [Probiotic] 1 TAB) PO SCH (09:00)
[2020-09-01] MEDS ORDERED: diltiaZEM HCL CD 180 MG CAP PO SCH (09:00)
[2020-09-01] MEDS ORDERED: CITALOPRAM HBR 20 MG TAB PO SCH (09:00)
[2020-09-01] MEDS ORDERED: ASPIRIN TABLET 325 MG TAB PO SCH (09:00)
[2020-09-01] MEDS ORDERED: LACTOBACILLUS 1 TAB PO SCH (09:00)
[2020-09-01] MEDS: tiZANidine 4 MG TAB PO SCH (09:37)
[2020-09-01] MEDS ORDERED: POTASSIUM CHLORIDE 20 MEQ TAB PO ONE (09:37)
[2020-09-01] MEDS: SODIUM CHLORIDE 0.9% (FLUSH) 10 ML SYG IV SCH (09:38)
[2020-09-01] MEDS ORDERED: POTASSIUM CHLORIDE 20 MEQ TAB ONE (09:45)
[2020-09-01 15:40] VITALS: BP 132/79; TEMP 98.8; O2SAT 95
--- NOTE | 2020-09-03 13:31 | SSS ---
SUPERVISING PHYSICIAN: Feng Patel MD DATE OF ADMISSION: 08/31/20 DATE OF DISCHARGE: 09/01/20 DISCHARGE DIAGNOSIS: 1. Transient ischemic attack like symptoms that resolved. 2. History of coronary artery disease. 3. History of cerebrovascular accident with no residual deficits. 4. History of previous transient ischemic attacks. 5. Hypertension. 6. History of atrial fibrillation. HISTORY OF PRESENT ILLNESS: This is an 79-year-old female patient who came to the Emergency Room due to right sided tingling and weakness. She actually woke up in the morning and her right side was tingling, especially her right lower extremity. It started around 7:30 in the morning. It was constant in nature and she was unable to walk. The episode lasted about 30 to 40 minutes. She also had another sensation that was quite different with tingling that went entirely across her lower abdomen. It went all the way to the left side. She was brought to the Emergency Room. Her initial vital signs were temperature 96.9, heart rate 64, blood pressure 162/89, respiratory rate 16, O2 saturation 95% on room air. In the Emergency Room, most of her tingling had resolved, but she did have a drift on her right lower leg. Lab was completed and her CBC was unremarkable. CMP was unremarkable. BNP was slightly elevated at 107. Urinalysis was also unremarkable. She was given an aspirin in the ER. Also, her abdomen was x-rayed and it showed clear lung bases with nondilated bowel gas pattern with mild colonic stool. No pathological calcification overlying the renal shadows or expected course of the ureters although evaluation is somewhat limited secondary to the patient's scoliotic curvature and overlying bowel gas and stool. There is a Gamma nail in the proximal left femur and moderate right greater than left hip arthrosis. Her head CT showed mild atrophy and microvascular white matter changes without changes of acute intracranial abnormality. Acute infarct may be inapparent on a background microvascular disease. MRI can be performed if clinically indicated. Chest x-ray shows enlarged cardiac silhouette, partially calcified aorta, small to moderate hiatal hernia with air-fluid level. Prior sternotomy with stable surgical clips along the left mediastinum and hilum. Scattered bibasilar atelectasis. No pleural effusion, no pneumothorax. Thoracic spondylosis. Chronic right rib fracture. She was placed in observation on the Floor in stable condition. HOSPITAL COURSE: The patient was placed in observation and she had no further symptoms of transient ischemic attack or stroke. She did have a very mild drift on her right lower extremity. She had no nausea or vomiting, no chest pain. Brain MRI, carotid ultrasound and echocardiogram were ordered. Today, she will be discharged from the hospital in stable condition. PAST MEDICAL HISTORY: 1. Atrial fibrillation. 2. Coronary artery disease. 3. Chronic obstructive pulmonary disease. 4. Depression and anxiety. 5. Hypertension. 6. Insomnia. 7. Lumbar disc disease. 8. Osteoporosis. 9. Previous transient ischemic attacks. 10. Cerebrovascular accident. PAST SURGICAL HISTORY: 1. Coronary artery bypass graft x4 grafts in 2007. 2. Hysterectomy. 3. Blader suspension. 4. Left hip surgery with Gamma nail. OUTPATIENT MEDICATIONS: Per the EMR. ALLERGIES: HYDROMORPHONE, MORPHINE. SOCIAL HISTORY: She lives in [place]. She is . She has three children. She has a history of smoking, but quit many years ago. There is no history of alcohol or illicit drug use. REVIEW OF SYSTEMS: Negative except as per history of present illness. PHYSICAL EXAMINATION: VITAL SIGNS: Temperature 96.4, heart rate 66, blood pressure 131/75, respiratory rate 20, O2 saturation 96% on room air. GENERAL: This is an 79-year-old female patient who looks younger than her stated age. She is in no acute distress. HEENT: Normocephalic, atraumatic. Pupils are equal and reactive. Oropharynx is clear. NECK: Supple without mass. RESPIRATORY: Essentially clear to auscultation bilaterally. CHEST: There is equal rise and fall of the chest with inspiration and expiration. CARDIOVASCULAR: Regular rate and rhythm. GASTROINTESTINAL: Abdomen is soft, nondistended, nontender. Bowel sounds are positive. EXTREMITIES: No cyanosis, clubbing or edema. BACK: Deferred. GENITOURINARY: Deferred. NEUROLOGIC: Awake, alert and oriented times three. Cranial nerves II-XII are grossly intact as tested. There are no further deficits or drifts to any of her extremities. LABORATORY: Her followup CBC, CMP and lipid panel are unremarkable and basically within normal limits. RADIOLOGY: Brain MRI shows 1) Mature old CVA right posterior parietal lobe abutting the posterior right ventricle with encephalomalacia, atrophy and gliosis. No mass effect, no cerebral edema, no hemorrhage, no diffusion restriction. Other white matter findings in the cortex and basal ganglia are stable with no hemorrhage or diffusion restriction. 2) Normal diffusion study without restriction indicating no significant ischemia, no acute or subacute infarction. 3) Mild enlargement of the pituitary gland is stable. Minimal chronic paranasal sinusitis. Carotid artery ultrasound shows 1) Doppler evaluation of the bilateral carotid systems and vertebral arteries shows no hemodynamically significant stenoses (less than 70%). 2) Moderate plaque in the carotid arteries bilaterally. Bilateral vertebral arteries showed antegrade- cephalad flow. Echocardiogram shows 1) Mild concentric left ventricular hypertrophy. 2) Left ventricular ejection fraction estimated by 2D at 65-70%. 3) Grade 1 diastolic dysfunction consistent with impaired relaxation and normal filling pressures. 4) Mild tricuspid regurgitation valve regurgitation. 5) Normal estimated right ventricular systolic pressure. 5) Mild left atrial enlargement. Negative bubble study for cardiac shunt. DISCHARGE PLAN: The patient will be discharged home in stable condition. She is to resume her previous diet and increase her activity as tolerated. She has a followup with her primary care physician., Dr Trip Maher, on 09/04/20 at 9:15 AM. It will be via Telehealth. At that time, he can review studies with her and I have encouraged the patient to watch her blood pressure closely. She can return to the hospital or followup with Dr. Maher for any problems or complications. There were no new medications ordered. DISCHARGE MEDICATIONS: 1. Multivitamins with minerals. 2. Calcium carbonate with vitamin D. 3. Citalopram. 4. Aspirin. 5. Plavix. 6. Atorvastatin. 7. Diltiazem. 8. Metoprolol. 9. Omeprazole. 10. Melatonin. 11. Levocetirizine. 12. Tizanidine. 13. Hydrocodone. 14. Phlebitis. #[id number] [facility]
== END 2020-09-01 14:30 | disposition home or self-care (01) ==
LOC: ER 08:32 → MS 11:04
PROVIDERS: ADMIT Nurse Practitioner Acute Care; ATTEND Nurse Practitioner Acute Care
DX: G45.9 Transient cerebral ischemic attack, unspecified (principal); I25.10 Atherosclerotic heart disease of native coronary artery without angina pectoris; I10 Essential (primary) hypertension; I48.91 Unspecified atrial fibrillation; K59.00 Constipation, unspecified; I44.4 Left anterior fascicular block; J44.9 Chronic obstructive pulmonary disease, unspecified; I36.1 Nonrheumatic tricuspid (valve) insufficiency; F32.9 Major depressive disorder, single episode, unspecified; F41.9 Anxiety disorder, unspecified; M81.0 Age-related osteoporosis without current pathological fracture; M16.0 Bilateral primary osteoarthritis of hip; Z86.73 Personal history of transient ischemic attack (TIA), and cerebral infarction without residual deficits; Z79.02 Long term (current) use of antithrombotics/antiplatelets; Z79.82 Long term (current) use of aspirin; Z79.899 Other long term (current) drug therapy; Z88.6 Allergy status to analgesic agent; Z95.1 Presence of aortocoronary bypass graft; Z87.891 Personal history of nicotine dependence; Z85.828 Personal history of other malignant neoplasm of skin
CPT/HCPCS: 96374; 96372; J1650; A4216 ×2; 80053 ×2; 80061; 36415; 81001; 85025 ×2; 84484; 83880; 74018; 71045; 70450; 93880; 94760 ×2; 97116; 97162; 99285; 93306; 70551; 93005; G0378

== ENCOUNTER 2020-09-08 19:39 | Emergency (ER) | payer MEDICARE, OTHER ==
[2020-09-08] MEDS ORDERED: SODIUM CHLORIDE 0.9% (FLUSH) 10 ML SYG IV PRN (20:00)
--- NOTE | 2020-09-08 20:14 | ED.PDOC ---
History of Present Illness - General Chief Complaint: Neuro Symptoms/Deficits Stated Complaint: alter mental status Time Seen by Provider: 09/08/20 19:50 Source: patient, RN notes reviewed, Vital Signs reviewed, EMS notes reviewed, family Exam Limitations: no limitations - History of Present Illness Initial Comments: This is an 79-year-old female presenting to the emergency department with altered mental status and slurred speech. Family states that she woke up from a nap around 4 PM and had a change in her mental status. They deny any weakness/numbness/tingling. There is no fall/injury/trauma. She was seen in the emergency room and admitted 1 week ago for TIA. She had an MRI, echo, carotid Dopplers at that time. There were no acute findings according to the family. She does have a history of four-vessel bypass as well as A. fib. She is on aspirin and Plavix, but they elected not to put her on Eliquis/Xarelto on the recent admission. She denies any headache.Daughter states that her mental status and speech have improved markedly since they came to the emergency department. Allergies/Adverse Reactions: Allergies Hydromorphone [From Dilaudid] Allergy (Verified 08/31/20 12:36) Morphine Allergy (Verified 08/31/20 12:36) Home Medications: Ambulatory Orders Aspirin [Aspirin EC] 81 mg PO OMAR-OTH-DAY 06/26/14 Atorvastatin Calcium [Lipitor] 40 mg PO BEDTIME 06/26/14 Calcium Carbonate-Vitamin D [Calcium 600+D 600-200 mg-Unit] 1 tab PO BID 06/26/14 Citalopram Hydrobromide [Celexa] 20 mg PO DAILY 06/26/14 Clopidogrel Bisulfate [Plavix] 75 mg PO BEDTIME 06/26/14 Multiple Vitamins W/ Minerals [Centrum Silver] 1 tab PO DAILY 06/26/14 Diltiazem HCl Coated Beads [Cartia Xt] 180 mg PO DAILY 12/11/18 Metoprolol Succinate [Toprol Xl] 12.5 mg PO DAILY 12/11/18 Omeprazole Magnesium [Prilosec Otc] 40 mg PO DAILY 12/11/18 Melatonin 20 mg PO BEDTIME 02/02/20 HYDROcodone 7.5MG/APAP 325MG [Kent 7.5/325] 1 ea PO Q6H PRN 08/31/20 Levocetirizine Dihydrochloride [Allergy Relief 24Hr] 5 mg PO DAILY 08/31/20 Probiotic Product [Probiotic] 1 tab PO DAILY 08/31/20 tiZANidine [Zanaflex] 4 mg PO TID 08/31/20 Cephalexin Monohydrate [Keflex] 500 mg PO Q12HR #10 cap 09/08/20 Review of Systems - Review of Systems Constitutional: Denies: chills, fever EENTM: Denies: ear pain, nose congestion Respiratory: Denies: orthopnea, short of breath Cardiology: Denies: edema, syncope Gastrointestinal/Abdominal: Denies: diarrhea, nausea, vomiting Genitourinary: States: dysuria, frequency. Denies: discharge, hematuria, pain Musculoskeletal: Denies: back pain, joint pain, muscle pain, muscle stiffness, neck pain Neurological: States: other - Slurred speech. Denies: anxiety, headache, numbness, pre-existing deficit, tingling, weakness Endocrine: States: no symptoms reported Hematologic/Lymphatic: States: no symptoms reported Past Medical History (General) - Patient Medical History Hx Seizures: No Hx Stroke: No Hx Dementia: No Hx Asthma: No Hx of COPD: Yes Hx Cardiac Disorders: Yes Hx Congestive Heart Failure: No Hx Pacemaker: No Hx Hypertension: Yes Hx Thyroid Disease: No Hx Diabetes: No Hx Gastroesophageal Reflux: No Hx Renal Disease: No Hx Cancer: Yes - skin cancer on nose Hx of HIV: No Hx Hepatitis C: No Hx MRSA: No - Vaccination History Hx Influenza Vaccination: Yes Hx Pneumococcal Vaccination: Yes - Social History Hx Tobacco Use: No Hx Alcohol Use: No Hx Substance Use: No Hx Substance Use Treatment: No Hx Depression: No Hx Physical Abuse: No Hx Emotional Abuse: No - Female History Patient : No Family Medical History - Family History Father Living Status: Age at (years of age): 88 Cause of : heart disease Mother Family History: No Known Living Status: Age at (years of age): 89 Progress - Progress Progress: 09/08/20 20:44 Old records reviewed. Patient had an echocardiogram on 08/31/2020. It showed LVH, EF 65 to 70%, grade 1 diastolic dysfunction, mild TR. 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 Carotid, vertebral artery Doppler showed no hemodynamically significant stenoses. She had moderate plaque in the carotids bilaterally, antegrade flow bilaterally. 09/08/20 21:39 Rechecked. Speech is completely normal at this time. No focal deficits. Awaiting remainder of labs, urinalysis. Patient now reports that she has had frequent urination over the past 2 to 3 days, stating that she is rushing to the bathroom every hour. She denies any fever or blood in urine. Possible UTI. Awaiting CTA head and neck at this time. 09/08/20 22:33 Rechecked. Symptoms completely resolved, patient back to her normal baseline. She feels much better and wants to go home. I reviewed CTA head/neck findings as well as UA findings. I discussed my suspicion this may be related to a UTI. Strongly recommended that she follow-up with PCP in 2 days for recheck. Strict warnings given to return the emergency room for any recurrent changes in mental status, weakness/numbness/tingling, headaches, fever, or any other concerns. DDx: Stroke, TIA, UTI, ICH MDM: Patient presenting with transient alteration of mental status and slurred speech. Her NIH stroke scale on arrival to the emergency department was 2. This was attributed mostly to speech change. She had no unilateral weakness or sensory changes. She was diagnosed with a TIA 1 week ago and had an extensive work-up at that time, including normal bilateral carotid Doppler, MRI, as well as echocardiogram. She is on aspirin and Plavix. It was decided not to start anticoagulation at that time. She does have a UTI. I do not feel her symptoms are a clear TIA/stroke at this time. Her symptoms were nearly completely resolved on arrival to the emergency department so she was not a TPA candidate on arrival. I had a long discussion with the patient and family regarding I doubt that this represents a stroke syndrome. Given her recent extensive work- up, I doubt there is more work-up that would need to happen as an inpatient. I recommended she follow-up with her PCP in 2 days for recheck. I will start antibiotics for UTI, urine culture is pending. Strict warnings given to return to the emergency room for any recurrent symptoms, fever, vomiting, or any other concerns. Sean Brizuela DO [facility] #[id number] - Results/Orders Results/Orders: EKG reviewed personally by me at 2153. Normal sinus rhythm, rate of 67, left axis, incomplete right bundle branch block, poor R wave progression, no ST segment elevations or depressions. EXAM: CT Head Without Intravenous Contrast CLINICAL HISTORY: The patient is 79 years old and is Female; altered mental status, aphasia, possible stroke TECHNIQUE: Axial computed tomography images of the head/brain without intravenous contrast. Sagittal and coronal reformatted images were created and reviewed. This CT exam was performed using one or more of the following dose reduction techniques: automated exposure control, adjustment of the mA and/or kV according to patient size, and/or use of iterative reconstruction technique. COMPARISON: No relevant prior studies available. FINDINGS: Brain: No intracranial hemorrhage. Mild age related periventricular white matter microangiopathic changes. 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 Ventricles: Unremarkable. No ventriculomegaly. Bones/joints: Unremarkable. No acute skull fracture. Soft tissues: Unremarkable. Sinuses: Unremarkable as visualized. No acute sinusitis. Mastoid air cells: No significant mastoid fluid. IMPRESSION: 1. No intracranial hemorrhage. 2. Mild age related periventricular white matter microangiopathic changes. 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 Electronically signed by: Elaine Livingston MD 09/08/2020 8:43 EXAM: XR Chest, 1 View CLINICAL HISTORY: The patient is 79 years old and is Female; ALTERED MENTAL STATUS, POSSIBLE STROKE TECHNIQUE: Single view of the chest. COMPARISON: August 31, 2020. FINDINGS: Lungs: Unremarkable. No consolidation. Pleural space: Unremarkable. No pneumothorax. Heart: The cardiac silhouette is enlarged versus artifact of AP technique. Status post CABG surgery. Mediastinum: Unremarkable. Bones/joints: The bones and joints are unchanged as visualized. No acute fracture visualized. Upper abdomen: No free air in the visualized upper abdomen. IMPRESSION: No acute cardiopulmonary process identified. Electronically signed by: Elaine Livingston MD 09/08/2020 8:53 09/08/20 20:00 IV Care:Saline Lock per Protoc [facility] Telemetry .ONCE Sodium Chloride 0.9% (Flush) [Saline Flush Syringe] 10 ml IV PRN PRN EKG STAT 09/08/20 21:20 URINE CULTURE W/COLONY COUNT Stat 09/08/20 22:25 cefTRIAXone SODIUM [Rocephin] 1 gm Sodium Chl 0.9% 50Ml Min-Bag+ [NS 50ml MINI-BAG+] 50 ml IVPB ONCE 09/09/20 20:00 EKG STAT Laboratory Results - last 24 hr 09/08/20 09/08/20 09/08/20 20:00 20:35 20:35 WBC 6.0 RBC 4.17 L Hgb 12.2 Hct 36.3 MCV 87.1 MCH 29.2 MCHC 33.6 RDW 13.3 Plt Count 237 MPV 6.7 L Absolute Neuts (auto) 3.60 Absolute Lymphs (auto) 1.50 Absolute Monos (auto) 0.70 Absolute Eos (auto) 0.20 Absolute Basos (auto) 0.10 Neutrophils % 60.7 Lymphocytes % 24.5 Monocytes % 10.9 H Eosinophils % 2.8 Basophils % 1.1 PT INR PTT (SP) Sodium 136 Potassium 4.0 Chloride 100 L Carbon Dioxide 24 Anion Gap 16.0 BUN 16 Creatinine 0.68 BUN/Creatinine Ratio 23.5 H POC Glucose 101 Random Glucose 104 Serum Osmolality 273.5 L Calcium 8.9 Phosphorus Magnesium Total Bilirubin 0.6 AST 21 ALT 16 Alkaline Phosphatase 64 Creatine Kinase 80 CK-MB (CK-2) 3.1 CK-MB (CK-2) % Not Reportable Troponin I < 0.02 Serum Total Protein 6.6 Albumin 3.9 Globulin 2.7 Albumin/Globulin Ratio 1.4 Urine Color Urine Appearance Urine pH Ur Specific [place] Urine Protein Urine Glucose (UA) Urine Ketones Urine Blood Urine Nitrite Urine Bilirubin Urine Urobilinogen Ur Leukocyte Esterase Urine RBC Urine WBC Ur Epithelial Cells Urine Bacteria 09/08/20 09/08/20 09/08/20 20:35 20:35 21:20 WBC RBC Hgb Hct MCV MCH MCHC RDW Plt Count MPV Absolute Neuts (auto) Absolute Lymphs (auto) Absolute Monos (auto) Absolute Eos (auto) Absolute Basos (auto) Neutrophils % Lymphocytes % Monocytes % Eosinophils % Basophils % PT 10.7 INR 1.08 PTT (SP) 25.0 Sodium Potassium Chloride Carbon Dioxide Anion Gap BUN Creatinine BUN/Creatinine Ratio POC Glucose Random Glucose Serum Osmolality Calcium Phosphorus 4.1 Magnesium 2.0 Total Bilirubin AST ALT Alkaline Phosphatase Creatine Kinase CK-MB (CK-2) CK-MB (CK-2) % Troponin I Serum Total Protein Albumin Globulin Albumin/Globulin Ratio Urine Color Yellow Urine Appearance Clear Urine pH 6.0 Ur Specific [place] 1.020 Urine Protein Negative Urine Glucose (UA) Negative Urine Ketones Negative Urine Blood Trace-intact H Urine Nitrite Negative Urine Bilirubin Negative Urine Urobilinogen 0.2 Ur Leukocyte Esterase Small H Urine RBC 0-1 Urine WBC 5-10 H Ur Epithelial Cells 1-3 Urine Bacteria Rare COVID-[address] ANGIOGRAPHY OF THE HEAD AND NECK HISTORY: Aphasia and altered mental status. COMPARISON: None. TECHNIQUE: CT angiogram of the head and neck was performed with contrast. 3D reformatted reconstructions were performed on an independent workstation. This exam was performed according to our departmental dose-optimization program, which includes automated exposure control, adjustment of the mA and/or kV according to patient size and/or use of iterative reconstruction technique. FINDINGS: NECK: The aortic arch origin, brachiocephalic, left common carotid, and left subclavian arteries are patent. The bilateral vertebral artery origins are also patent. The bilateral common carotid arteries, carotid bifurcations, cervical internal/external carotid, and vertebral arteries are patent. There are atherosclerotic calcifications in the bilateral cavernous carotid arteries. HEAD: There is patent flow through anterior circulation, posterior circulation, and distal intracranial vasculature. Atherosclerotic calcifications in the basilar artery. The left vertebral artery is dominant. There is patent flow through a complete [id number] with a patent anterior communicating artery and bilateral posterior communicating arteries. IMPRESSION: No evidence of occlusive thrombosis, dissection, or aneurysm in the major vasculature of the head and neck. Electronically signed by: Anatoliy Dan MD 09/08/2020 9:53 PM CDT Stroke Information - Onset of Symptoms Stroke Onset of Symptoms Date: 09/08/20 Stroke Onset of Symptoms Time: 16:00 - Near completely resolved on arrival to the emergency department. Total NIH stroke scale on arrival - Contraindications Antithrombotic Contraindication: Treatment not indicated t-PA Contraindication: Drug Tx Not Indicated Departure - Departure Clinical Impression: Transient alteration of awareness Acute cystitis Qualifiers: Hematuria presence: without hematuria Qualified Code(s): N30.00 - Acute cystitis without hematuria Disposition: Discharge to Home or Self Care Condition: Good Departure Forms: ED Discharge - Pt. Copy, Patient Portal Self Enrollment Diet: resume usual diet Activity: increase activity as tolerated Referrals: Trip Maher MD [Primary Care Provider] - 1-2 Days Prescriptions: Cephalexin Monohydrate [Keflex] 500 mg PO Q12HR #10 cap Home Medications: Ambulatory Orders Aspirin [Aspirin EC] 81 mg PO OMAR-OTH-DAY 06/26/14 Atorvastatin Calcium [Lipitor] 40 mg PO BEDTIME 06/26/14 Calcium Carbonate-Vitamin D [Calcium 600+D 600-200 mg-Unit] 1 tab PO BID 06/26/14 Citalopram Hydrobromide [Celexa] 20 mg PO DAILY 06/26/14 Clopidogrel Bisulfate [Plavix] 75 mg PO BEDTIME 06/26/14 Multiple Vitamins W/ Minerals [Centrum Silver] 1 tab PO DAILY 06/26/14 Diltiazem HCl Coated Beads [Cartia Xt] 180 mg PO DAILY 12/11/18 Metoprolol Succinate [Toprol Xl] 12.5 mg PO DAILY 12/11/18 Omeprazole Magnesium [Prilosec Otc] 40 mg PO DAILY 12/11/18 Melatonin 20 mg PO BEDTIME 02/02/20 HYDROcodone 7.5MG/APAP 325MG [Kent 7.5/325] 1 ea PO Q6H PRN 08/31/20 Levocetirizine Dihydrochloride [Allergy Relief 24Hr] 5 mg PO DAILY 08/31/20 Probiotic Product [Probiotic] 1 tab PO DAILY 08/31/20 tiZANidine [Zanaflex] 4 mg PO TID 08/31/20 Cephalexin Monohydrate [Keflex] 500 mg PO Q12HR #10 cap 09/08/20
--- NOTE | 2020-09-08 20:45 | CT ---
EXAM: CT Head Without Intravenous Contrast CLINICAL HISTORY: The patient is 79 years old and is Female; altered mental status, aphasia, possible stroke TECHNIQUE: Axial computed tomography images of the head/brain without intravenous contrast. Sagittal and coronal reformatted images were created and reviewed. This CT exam was performed using one or more of the following dose reduction techniques: automated exposure control, adjustment of the mA and/or kV according to patient size, and/or use of iterative reconstruction technique. COMPARISON: No relevant prior studies available. FINDINGS: Brain: No intracranial hemorrhage. Mild age related periventricular white matter microangiopathic changes. 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 Ventricles: Unremarkable. No ventriculomegaly. Bones/joints: Unremarkable. No acute skull fracture. Soft tissues: Unremarkable. Sinuses: Unremarkable as visualized. No acute sinusitis. Mastoid air cells: No significant mastoid fluid. IMPRESSION: 1. No intracranial hemorrhage. 2. Mild age related periventricular white matter microangiopathic changes. 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 Electronically signed by: Elaine Livingston MD 09/08/2020 8:43 PM CDT
--- NOTE | 2020-09-08 20:54 | RAD ---
EXAM: XR Chest, 1 View CLINICAL HISTORY: The patient is 79 years old and is Female; ALTERED MENTAL STATUS, POSSIBLE STROKE TECHNIQUE: Single view of the chest. COMPARISON: August 31, 2020. FINDINGS: Lungs: Unremarkable. No consolidation. Pleural space: Unremarkable. No pneumothorax. Heart: The cardiac silhouette is enlarged versus artifact of AP technique. Status post CABG surgery. Mediastinum: Unremarkable. Bones/joints: The bones and joints are unchanged as visualized. No acute fracture visualized. Upper abdomen: No free air in the visualized upper abdomen. IMPRESSION: No acute cardiopulmonary process identified. Electronically signed by: Elaine Livingston MD 09/08/2020 8:53 PM CDT
--- NOTE | 2020-09-08 21:55 | CT ---
CT ANGIOGRAPHY OF THE HEAD AND NECK HISTORY: Aphasia and altered mental status. COMPARISON: None. TECHNIQUE: CT angiogram of the head and neck was performed with contrast. 3D reformatted reconstructions were performed on an independent workstation. This exam was performed according to our departmental dose-optimization program, which includes automated exposure control, adjustment of the mA and/or kV according to patient size and/or use of iterative reconstruction technique. FINDINGS: NECK: The aortic arch origin, brachiocephalic, left common carotid, and left subclavian arteries are patent. The bilateral vertebral artery origins are also patent. The bilateral common carotid arteries, carotid bifurcations, cervical internal/external carotid, and vertebral arteries are patent. There are atherosclerotic calcifications in the bilateral cavernous carotid arteries. HEAD: There is patent flow through anterior circulation, posterior circulation, and distal intracranial vasculature. Atherosclerotic calcifications in the basilar artery. The left vertebral artery is dominant. There is patent flow through a complete [id number] with a patent anterior communicating artery and bilateral posterior communicating arteries. IMPRESSION: No evidence of occlusive thrombosis, dissection, or aneurysm in the major vasculature of the head and neck. Electronically signed by: Anatoliy Dan MD 09/08/2020 9:53 PM CDT
[2020-09-08] MEDS ORDERED: cefTRIAXone SODIUM 1 GM in SODIUM CHL 0.9% 50ML MIN-BAG+ 50 ML IVPB ONE (22:25)
[2020-09-08] MEDS ORDERED: CEPHALEXIN MONOHYDRATE 500 MG CAP PO ONE (23:00)
[2020-09-08] MEDS ORDERED: CEPHALEXIN MONOHYDRATE 500 MG CAP ONE (23:15)
[2020-09-08 23:28] VITALS: BP 132/72; TEMP 98; O2SAT 94
== END 2020-09-08 23:20 | disposition home or self-care (01) ==
LOC: ER 19:39
DX: R40.4 Transient alteration of awareness (principal); N30.00 Acute cystitis without hematuria; J44.9 Chronic obstructive pulmonary disease, unspecified; I10 Essential (primary) hypertension; Z20.828 Contact with and (suspected) exposure to other viral communicable diseases; I45.10 Unspecified right bundle-branch block; I48.91 Unspecified atrial fibrillation; Z79.82 Long term (current) use of aspirin; Z79.02 Long term (current) use of antithrombotics/antiplatelets; Z95.1 Presence of aortocoronary bypass graft
CPT/HCPCS: 70450; 70496; 70498; 71045; 80053; 81001; 82550; 82553; 82948; 83735; 84100; 84484; 85025; 85610; 85730; 87086; 87635; J0696; J7050

== ENCOUNTER → 2020-09-11 | Outpatient (CLI) | payer MEDICARE, OTHER | LOC: RESP 14:01 | PROVIDERS: ATTEND Family Medicine | DX: I47.1 Supraventricular tachycardia (principal) ==

== ENCOUNTER → 2020-09-20 | Outpatient (CLI) | payer MEDICARE, OTHER | LOC: GMAJ 11:47 | PROVIDERS: ATTEND Family Medicine | DX: R41.9 Unspecified symptoms and signs involving cognitive functions and awareness (principal) ==

== ENCOUNTER → 2020-12-02 | Outpatient (CLI) | payer MEDICARE, OTHER | LOC: GMAJ 16:33 | PROVIDERS: ATTEND Physician Assistant | DX: N39.0 Urinary tract infection, site not specified (principal) ==

== ENCOUNTER → 2020-12-11 | Outpatient (CLI) | payer MEDICARE, OTHER ==
--- NOTE | 2020-12-11 19:49 | RAD ---
EXAM DESCRIPTION: Lumbar Spine 5 Views CLINICAL HISTORY: 80 years Female, SPONDILOLISTHESIS LUMBAR REGION COMPARISON: Concurrent Findings: Five view(s)/radiograph(s) Osteopenia. Atherosclerotic disease. L3 augmentation. No acute fracture identified. Leftward scoliosis of approximately 35 degrees apex at T12. Marked multilevel lumbar spondylosis. No definite evidence of instability. No acute fracture or subluxation. Degenerative grade 1 anterolisthesis L4 on L5. IMPRESSION: Multilevel lumbar spondylosis. Electronically signed by: Fritz Alvarez MD 12/11/2020 7:47 PM [facility] [[email or web address]]
--- NOTE | 2020-12-13 11:07 | MRI ---
EXAM DESCRIPTION: Lumbar Spine w/o Contrast : Magnetic Resonance Imaging. CLINICAL HISTORY: SPONDYLOLISTHESIS LUMBAR REGION COMPARISON: MRI scan lumbar spine without contrast April 2019. Lumbar spine radiographs from outside clinic on April 2019. TECHNIQUE: Multiplanar, multiple standard sequences, non contrast MRI, lumbar spine. FINDINGS: L5-S1: The disc is well visualized on axial T2 series 501, image 3. Disc desiccation with disc space maintained. Linear hypodense signal in the posterior disc could represent calcification or desiccation gas. No bulging. Hypertrophic changes in the flavum ligaments and facet joints (canal elements). AP canal diameter 8.3 mm. Right subarticular recess stenosis caused by hypertrophic right facet spur which is also encroaching on the descending right S1 nerve. Moderate narrowing of the right foramen and moderate to severe narrowing of the left foramen. Stable since the prior study. L4-L5: Disc desiccation with disc space maintained. Grade 1 anterolisthesis 5 mm. Minimal posterior disc bulge. Endplate reactive changes Modic type II left. Disc spur complex encroaching on the left foramen with stenosis and the left L4 nerve. No change from the prior study. Hypertrophic changes in the canal elements. AP canal diameter 9.4 mm. Borderline right foraminal stenosis. Vertebroplasty cement in the mid and right side of the L3 vertebral body. L3-L4: Disc desiccation with minimal posterior bulge. Minimal bulge into the left foramen. Hypertrophic changes in the canal elements, more on the left. Moderate narrowing of the left foramen. Canal is patent. Mild narrowing of the right foramen. L2-L3: Old compression injury, with depression of the superior L3 endplate. More to the left of midline. No marrow edema. Vertebral augmentation has been performed since the prior study. Some cement can be seen in the superior endplate, inferior to the disc space. Retropulsion of the superior endplate 3 mm has slightly increased since the prior study. Posterior broad-based disc bulge. Hypertrophic changes in the canal elements more on the left. Hypertrophic spur on the left facet is abutting the descending left L3 nerve. Multifactorial right foraminal stenosis. Stable since the prior study. L1-L2: Disc desiccation with right side Modic type III endplate reactive changes. Disc spur complex encroaching on the right ventral canal and right foraminal stenosis. Abutting the right L1 nerve. Anterior and right disc bulging and endplate spurs. Broad posterior disc bulge is narrowing the right subarticular recess; Minimal disc bulging in the midline and left canal. Hypertrophic changes in the canal elements more on the right. Moderate narrowing of the left foramen. No interval change. T12-L1: Disc desiccation and minimal narrowing of the right side disc space. No bulging. Minimal hypertrophic changes in the canal elements are symmetric. Canal is patent. Moderate narrowing of the right foramen with left foramen patent. Circumscribed hyperintense hemangioma on T1 and T2 sequences at T12 and T11. Conus terminates at this level. No change from the prior study. T11-T12: Disc desiccation with disc space preserved. Minimal anterior bulging of the disc and endplates. Canal elements are unremarkable. Canal and foramina are patent. Stable since the prior study. Dextroscoliosis L3-L5. Levoscoliosis T12-L3. Paravertebral soft tissues paravertebral posterior fatty muscle atrophy. No psoas muscle atrophy. Atherosclerotic changes and tortuosity of the aorta.. Distal cord normal signal and caliber. Otherwise normal marrow signal in the remaining vertebral bodies and the posterior elements. Vertebral bodies are not compressed at any level. IMPRESSION: 1. Old compression injury of L3 of the superior endplate which is depressed. No significant change from the prior study except for vertebral augmentation which has been performed. No marrow edema. Retropulsion of the superior endplate has increased since the prior study. 2. Scoliosis, multiple levels are desiccated and bulging discs, multiple levels of spondylosis, and multiple levels of facet joint hypertrophy and thickening of the posterior flavum ligaments. Scoliosis has progressed since the prior study. 3. Moderate central canal stenosis L5-S1 and subarticular recess stenosis on the right encroaching on the right S1 nerve. Stable since the prior study. 4. Mild central canal stenosis at L4-5 and borderline right foraminal stenosis. This is progressed since the prior study. 5. Please refer to FINDINGS for discussion of results at specific disc space levels. Electronically signed by: Claude Hooks MD 12/13/2020 11:05 AM [facility]
== END ==
LOC: MRI 10:16
PROVIDERS: ATTEND Family Medicine Sports Medicine
DX: M43.16 Spondylolisthesis, lumbar region (principal); M47.896 Other spondylosis, lumbar region; M51.86 Other intervertebral disc disorders, lumbar region; M51.36 Other intervertebral disc degeneration, lumbar region; M48.061 Spinal stenosis, lumbar region without neurogenic claudication; M48.07 Spinal stenosis, lumbosacral region; M41.9 Scoliosis, unspecified

== ENCOUNTER → 2020-12-17 | Outpatient (CLI) | payer MEDICARE, OTHER | LOC: YCHH 12:59 | PROVIDERS: ATTEND Family Medicine | DX: N39.0 Urinary tract infection, site not specified (principal) ==